=== PATIENT | male | born 1940 | race Caucasian/White ===

== ENCOUNTER 2019-09-24 16:15 | Inpatient (IN) | payer MEDICARE ==
[2019-09-24] VITALS (9 sets, daily range): BP systolic 116–152; BP diastolic 61–85
[~2019-09-24] VITALS: Ht 182.9 cm; Wt 96.5 kg
[~2019-09-24 16:15] MED LIST: HEPARIN SODIUM 1000UNIT/ML 10ML VIAL IV ONE
[2019-09-24] MEDS ORDERED: IPRATROPIUM/ALBUTEROL SULFATE 3 ML SOLUTION IH ONE (16:20)
[2019-09-24 16:38] LABS: BASOPHILS % (AUTO) 0.5 % (0.0-5.0); EOSINOPHILS % (AUTO) 0.7 % (0.0-8.0); HEMATOCRIT 37.2 % (42-54); LYMPHOCYTES % (AUTO) 8.3 % (21.0-51.0); MEAN CORPUSCULAR HEMOGLOBIN 29.4 pg (27.0-33.0); MEAN CORPUSCULAR VOLUME 91.9 fL (79-99); MONOCYTES % (AUTO) 3.7 % (3.0-13.0); NEUTROPHILS % (AUTO) 86.3 % (40.0-77.0); PLATELET COUNT (AUTO) 178 K/uL (130-400); RED BLOOD CELL COUNT(AUTO) 4.05 MIL/uL (4.50-6.20); RED CELL DISTRIBUTION WIDTH 14.9 % (11.0-15.5); WHITE BLOOD COUNT (AUTO) 10.4 K/uL (4.8-10.8)
[2019-09-24] MEDS ORDERED: FUROSEMIDE 10 MG/ML 4ML VIAL ONE (16:39)
[2019-09-24 16:49] LABS: CREATININE 1.1 mg/dL (0.5-1.5); POTASSIUM 4.3 mmol/L (3.5-5.1)
[2019-09-24 16:56] LABS: INR 1.02 (0.85-1.15); PARTIAL THROMBOPLASTIN TIME 38.1 SEC (26.3-35.5); PROTHROMBIN TIME 10.7 SEC (9.6-11.6)
[2019-09-24 17:01] LABS: ALBUMIN 4.4 g/dL (3.5-5.0); BILIRUBIN,TOTAL 0.9 mg/dL (0.2-1.0); TOTAL PROTEIN, SERUM 8.6 g/dL (6.0-8.3); TROPONIN I 0.07 ng/mL (0.00-0.06)
[2019-09-24] MEDS ORDERED: ASPIRIN 325 MG TABLET ONE (17:04)
[2019-09-24] MEDS ORDERED: AZITHROMYCIN 250 MG TABLET PO ONE (17:18)
[2019-09-24] MEDS ORDERED: CEFTRIAXONE SODIUM 1 GM ONE (17:18)
[2019-09-24] MEDS ORDERED: SODIUM CHLORIDE 0.9% 50 ML IV ONE (17:19)
[2019-09-24] MEDS ORDERED: ONDANSETRON HCL 4 MG/2 ML VIAL IVP PRN (19:15)
[2019-09-24] MEDS ORDERED: ACETAMINOPHEN 325 MG TAB PO PRN (19:15)
[2019-09-24] MEDS ORDERED: IOHEXOL 350 MG/ML 100ML INFUS..BTL IV ONE (20:06)
--- NOTE | 2019-09-24 20:20 | NUR ---
ADMISSION 1949 RECEIVED ED REPORT FROM RUBEN ROSAS 2019 PT ADMITTED RM 216 FROM ER ACCOMPANIED BY FAMILY PT CONNECTED TO BEDSIDE MONITOR CONNECTED TO BIPAP IN NO DISTRESS AT THIS TIME ADMISSION DATABASE COMPLETE NO MEDICATIONS AT BEDSIDE ASKED DAUGHTER TO BRING IN AM AND PERSONAL BELONGINGS EYEGLASSES, DENTURES, AND PHONE/MEDICAL NUMERICAL CONTROL OPERATOR AT BESIDE. 2119 HOSPITALIST Prema EASLEY NOTIFIED PT ARRIVAL TO UNIT, V/S, MEDS, LAB/IMAGE RESULTS. NO ORDERS RECEIVED
[2019-09-24 21:12] LABS: APPEARANCE,URINE Clear (CLEAR); BILIRUBIN,URINE Negative (NEGATIVE); COLOR,URINE Yellow (YELLOW); GLUCOSE, URINE (UA) Negative (NEGATIVE); KETONES,URINE Negative (NEGATIVE); LEUKOCYTE ESTERASE ,URINE Negative (NEGATIVE); NITRATE,URINE Negative (NEGATIVE); OCCULT BLOOD,URINE Negative (NEGATIVE); PROTEIN,URINE Negative (NEGATIVE); UROBILINOGEN,URINE 0.2 mg/dL (0.2-1.0)
[2019-09-24] MEDS ORDERED: POTASSIUM CHLORIDE 20 MEQ ERTAB PO PRN (21:15)
[2019-09-24 22:03] LABS: CHOLESTEROL 124 mg/dL (<200); HDL CHOLESTEROL 51 mg/dL (29-71); LDL DIRECT 70 mg/dL (0-99); TRIGLYCERIDES 47 mg/dL (30-200)
[2019-09-24 23:24] LABS: AMPHET/METH SCREEN,URINE NEGATIVE (NEGATIVE); BARBITURATE SCREEN, URINE NEGATIVE (NEGATIVE); BENZODIAZEPINES SCREEN,URINE NEGATIVE (NEGATIVE); CANNABINOID SCREEN,URINE NEGATIVE (NEGATIVE); COCAINE SCREEN,URINE NEGATIVE (NEGATIVE); OPIATE SCREEN,URINE POSITIVE (NEGATIVE); PHENCYCLIDINE SCREEN,URINE NEGATIVE (NEGATIVE)
[2019-09-24] MEDS: FUROSEMIDE 10 MG/ML 4ML VIAL IV SCH (23:30)
[2019-09-24] MEDS: FAMOTIDINE/PF 20 MG/2 ML VIAL IV SCH (23:30)
[2019-09-25] VITALS (25 sets, daily range): BP systolic 110–148; BP diastolic 44–100
--- NOTE | 2019-09-25 00:30 | NUR ---
UPDATE 8550 DR. MACIEL PAGED AWAITING CALL BACK
[2019-09-25] MEDS: ENOXAPARIN SODIUM 100 MG/1 ML SQ SCH ×3 (03:01→21:08)
[2019-09-25 04:36] LABS: BASOPHILS % (AUTO) 0.4 % (0.0-5.0); EOSINOPHILS % (AUTO) 0.5 % (0.0-8.0); HEMATOCRIT 34.4 % (42-54); LYMPHOCYTES % (AUTO) 8.7 % (21.0-51.0); MEAN CORPUSCULAR HEMOGLOBIN 29.7 pg (27.0-33.0); MEAN CORPUSCULAR HGB CONC 32.3 g/dL (32.0-36.0); MONOCYTES % (AUTO) 5.9 % (3.0-13.0); PLATELET COUNT (AUTO) 155 K/uL (130-400); RED BLOOD CELL COUNT(AUTO) 3.74 MIL/uL (4.50-6.20); RED CELL DISTRIBUTION WIDTH 15.2 % (11.0-15.5); WHITE BLOOD COUNT (AUTO) 9.3 K/uL (4.8-10.8)
[2019-09-25] MEDS: FUROSEMIDE 10 MG/ML 4ML VIAL IV SCH ×4 (06:32→23:15)
[2019-09-25] MEDS: METOPROLOL TARTRATE 25 MG TAB PO SCH ×2 (08:07→20:02)
[2019-09-25] MEDS: FAMOTIDINE/PF 20 MG/2 ML VIAL IV SCH ×2 (08:12→21:07)
[2019-09-25] MEDS ORDERED: ENOXAPARIN SODIUM 40 MG/0.4 ML SYRINGE SQ SCH (09:00)
[2019-09-25] MEDS ORDERED: AMLO10TA7 PO (09:17)
[2019-09-25] MEDS ORDERED: LOSA1TAB54 PO (09:17)
[2019-09-25] MEDS ORDERED: ACET1TAB12 PO (09:17)
[2019-09-25] MEDS ORDERED: POTA10CA44 PO (09:17)
[2019-09-25] MEDS ORDERED: ALLO100T PO (09:17)
[2019-09-25] MEDS ORDERED: FURO40TA5 PO (09:17)
[2019-09-25] MEDS ORDERED: PRAV40TA3 PO (09:17)
[2019-09-25] MEDS ORDERED: FINA5TAB41 PO (09:17)
[2019-09-25] MEDS ORDERED: GABA-529 PO (09:17)
[2019-09-25] MEDS ORDERED: MELO-108 PO (09:17)
--- NOTE | 2019-09-25 09:20 | NUR ---
HOME MEDICATIONS ENTERED. DR LANE AWARE. MPOA AND DIRECTIVE TO PHYSICIANS COPIED AND PLACED IN CHART. PATIENT TO REMAIN A FULL CODE AT THIS TIME PER PATIENT AND FAMILY. DR MARTINEZ PAGED FOR TROPONIN AND TO UPDATE ON CONDITION, PENDING CALL BACK.
[2019-09-25] MEDS ORDERED: GLUCAGON 1MG KIT 1 MG ML IM PRN (11:00)
[2019-09-25] MEDS ORDERED: DEXTROSE 50%-WATER 50 ML DISP.SYRIN IV PRN (11:00)
[2019-09-25] MEDS: INSULIN HUMULIN R 100 UNIT/ML 3ML SQ SCH ×3 (11:30→21:00)
[2019-09-25 11:51] LABS: ABG BASE EXCESS 1.5 mmol/L (-2.0-3.0); ABG HCO3 23.6 mmol/L (21.0-28.0); ABG OXYGEN SATURATION 87.4 % (95.0-99.0); ABG PCO2 31 mmHg (35-48)
[2019-09-25] MEDS: ASPIRIN 81MG TAB.CHEW PO SCH (12:07)
[2019-09-25] MEDS: ALLOPURINOL 100 MG TABLET PO SCH (12:07)
[2019-09-25] MEDS: POTASSIUM CHLORIDE 10 MEQ/TAB.SA PO SCH (12:08)
[2019-09-25] MEDS: GABAPENTIN 100 MG CAPSULE PO SCH ×2 (14:07→21:06)
[2019-09-25] MEDS ORDERED: FAMOTIDINE/PF 20 MG/2 ML VIAL IV ONE (20:36)
[2019-09-25] MEDS ORDERED: GABAPENTIN 100 MG CAPSULE ONE (20:36)
[2019-09-25] MEDS: SIMVASTATIN 20 MG TABLET PO SCH (21:00)
[2019-09-25] MEDS: ACETAMINOPHEN-CODEINE 300/30MG TAB PO SCH (21:06)
[2019-09-25] MEDS: FINASTERIDE 5 MG TABLET PO SCH (21:06)
[2019-09-25] MEDS: ATORVASTATIN CALCIUM 20 MG TABLET PO SCH (21:06)
[2019-09-26] VITALS (27 sets, daily range): BP systolic 104–136; BP diastolic 40–113
[2019-09-26 03:57] LABS: HEMATOCRIT 33.1 % (42-54); MEAN CORPUSCULAR HEMOGLOBIN 29.9 pg (27.0-33.0); MEAN CORPUSCULAR HGB CONC 32.3 g/dL (32.0-36.0); MEAN CORPUSCULAR VOLUME 92.5 fL (79-99); PLATELET COUNT (AUTO) 166 K/uL (130-400); RED BLOOD CELL COUNT(AUTO) 3.58 MIL/uL (4.50-6.20); RED CELL DISTRIBUTION WIDTH 15.2 % (11.0-15.5); WHITE BLOOD COUNT (AUTO) 9.1 K/uL (4.8-10.8)
[2019-09-26 04:02] LABS: INR 1.13 (0.85-1.15); PARTIAL THROMBOPLASTIN TIME 70.2 SEC (26.3-35.5); PROTHROMBIN TIME 11.8 SEC (9.6-11.6)
[2019-09-26 04:06] LABS: HEMOGLOBIN A1C 5.9 % (4.0-6.0)
[2019-09-26 04:12] LABS: B-TYPE NATRIURETIC PEPTIDE 1540 pg/mL (0-100)
[2019-09-26 04:35] LABS: CREATININE 1.1 mg/dL (0.5-1.5); POTASSIUM 3.5 mmol/L (3.5-5.1)
[2019-09-26 04:38] LABS: TROPONIN I 5.75 ng/mL (0.00-0.06)
[2019-09-26] MEDS: FUROSEMIDE 10 MG/ML 4ML VIAL IV SCH ×4 (05:36→23:42)
[2019-09-26] MEDS: LIDOCAINE HCL-MPF 1% 2ML VIAL IJ PRN ×2 (05:41→13:19)
[2019-09-26] MEDS: POTASSIUM CHLORIDE 20MEQ/100ML 100 ML IV PRN ×2 (05:42→13:19)
[2019-09-26] MEDS: INSULIN HUMULIN R 100 UNIT/ML 3ML SQ SCH ×4 (06:42→20:22)
--- NOTE | 2019-09-26 07:00 | NUR ---
PATIENT RECEIVED IN BED, AAOX3, NO ACUTE DISTRESS NOTED. PATIENT CONTINUES WITH HEART RATE 30s TO 40s AFIB/AFLUTTER. PATIENT ON BIPAP WITH SATURATIONS AT 100%. PATIENT REMAINS IS ASYMPTOMATIC, NO C/O PAIN OR SOB VOICED. WILL CONT TO MONITOR CLOSELY.
[2019-09-26] MEDS: FAMOTIDINE/PF 20 MG/2 ML VIAL IV SCH ×2 (09:00→20:13)
[2019-09-26] MEDS: ENOXAPARIN SODIUM 100 MG/1 ML SQ SCH ×2 (09:00→20:15)
[2019-09-26] MEDS: ASPIRIN 81MG TAB.CHEW PO SCH (09:00)
[2019-09-26] MEDS: POTASSIUM CHLORIDE 10 MEQ/TAB.SA PO SCH (09:00)
[2019-09-26] MEDS: GABAPENTIN 100 MG CAPSULE PO SCH ×3 (09:00→20:11)
--- NOTE | 2019-09-26 10:00 | NUR ---
CHANNELING MACHINE OPERATOR ROUNDS LAILA CERDA CHANNELING MACHINE OPERATOR IN TO EVALUATE PATIENT.
[2019-09-26] MEDS: ALLOPURINOL 100 MG TABLET PO SCH (12:00)
--- NOTE | 2019-09-26 12:30 | NUR ---
MD ROUNDS DR. NAVA IN TO EVALUATE PATIENT. I UPDATED HIM ON STATUS.NEW ORDERS RECEIVED, TO BE CARRIED OUT. PATIENT CONTINUES NPO FOR POSSIBLE HEART CATH.
[2019-09-26] MEDS ORDERED: ATROPINE SULFATE 0.1 MG/ML 10 ML SYG IVP PRN ×2 (13:00→13:30)
[2019-09-26] MEDS ORDERED: DOPAMINE HCL 400 MG/D5%-WATER 250 ML IV SCH (13:15)
--- NOTE | 2019-09-26 14:00 | NUR ---
DOPAMINE INITIATED AT 2MCG/KG/MIN.
--- NOTE | 2019-09-26 16:10 | NUR ---
PAGED DR. MACIEL VIA ANSWERING SERVICE TO CLARIFY PLANS FOR HEART CATH. WILL AWAIT CALL BACK.
--- NOTE | 2019-09-26 16:13 | NUR ---
DR. MACIEL CALLED BACK, INSTRUCTED TO FEED PATIENT TODAY AND TO KEEP NPO AFTER MN FOR CATH TOMORROW, NOTIFY AIX SYSTEM ADMINISTRATOR. UPDATED ON STATUS AND NEW ORDERS FROM DR. NAVA REGARDING HEART RATE AND DOPAMINE.
--- NOTE | 2019-09-26 17:55 | NUR ---
D/C PLAN CM spoke to pt regarding d/c planning. Pt is ind. with ADL's. Son lives with pt. 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 States son is being cared for by his family while in hospital. States daughters come and assist pt as needed. Denies having any home health or provider services. CM offered short term snf/rehab as possible d/c option. Plan to home. CM to f/u. Addendum: 09/26/19 at 1759 by ANGEL PERKINS CM Amended: Links added.
[2019-09-26] MEDS ORDERED: GABAPENTIN 100 MG CAPSULE ONE (19:46)
[2019-09-26] MEDS ORDERED: FAMOTIDINE/PF 20 MG/2 ML VIAL IV ONE (19:47)
[2019-09-26] MEDS: FINASTERIDE 5 MG TABLET PO SCH (20:11)
[2019-09-26] MEDS: ATORVASTATIN CALCIUM 20 MG TABLET PO SCH (20:11)
[2019-09-26] MEDS: ACETAMINOPHEN-CODEINE 300/30MG TAB PO SCH (20:12)
[2019-09-26] MEDS: SIMVASTATIN 20 MG TABLET PO SCH (20:13)
[2019-09-26] MEDS: POTASSIUM CHLORIDE 10% ELIXIR 20 MEQ/15 ML UDCUP PO PRN ×2 (20:24→22:00)
[2019-09-27] VITALS (49 sets, daily range): BP systolic 90–167; BP diastolic 45–89
[2019-09-27 03:59] LABS: CREATININE 1.2 mg/dL (0.5-1.5); MAGNESIUM 2.2 mg/dL (1.80-2.40); PHOSPHORUS 4.2 mg/dL (2.5-4.9); POTASSIUM 3.6 mmol/L (3.5-5.1)
[2019-09-27 04:04] LABS: BASOPHILS % (AUTO) 0.8 % (0.0-5.0); EOSINOPHILS % (AUTO) 2.3 % (0.0-8.0); HEMATOCRIT 33.9 % (42-54); LYMPHOCYTES % (AUTO) 17.6 % (21.0-51.0); MEAN CORPUSCULAR HEMOGLOBIN 29.4 pg (27.0-33.0); MEAN CORPUSCULAR HGB CONC 32.7 g/dL (32.0-36.0); MEAN CORPUSCULAR VOLUME 89.9 fL (79-99); MONOCYTES % (AUTO) 8.8 % (3.0-13.0); NEUTROPHILS % (AUTO) 70.2 % (40.0-77.0); PLATELET COUNT (AUTO) 179 K/uL (130-400); RED BLOOD CELL COUNT(AUTO) 3.77 MIL/uL (4.50-6.20); RED CELL DISTRIBUTION WIDTH 14.6 % (11.0-15.5); WHITE BLOOD COUNT (AUTO) 7.5 K/uL (4.8-10.8)
[2019-09-27 04:09] LABS: INR 1.07 (0.85-1.15); PARTIAL THROMBOPLASTIN TIME 55.6 SEC (26.3-35.5); PROTHROMBIN TIME 11.2 SEC (9.6-11.6)
[2019-09-27] MEDS: POTASSIUM CHLORIDE 20MEQ/100ML 100 ML IV PRN ×4 (04:37→22:24)
[2019-09-27] MEDS: LIDOCAINE HCL-MPF 1% 2ML VIAL IJ PRN (04:37)
[2019-09-27] MEDS: FUROSEMIDE 10 MG/ML 4ML VIAL IV SCH ×2 (05:08→11:56)
[2019-09-27] MEDS: INSULIN HUMULIN R 100 UNIT/ML 3ML SQ SCH ×3 (06:35→16:30)
[2019-09-27] MEDS: GABAPENTIN 100 MG CAPSULE PO SCH ×2 (08:09→12:54)
[2019-09-27] MEDS: POTASSIUM CHLORIDE 10 MEQ/TAB.SA PO SCH (08:10)
[2019-09-27] MEDS: ENOXAPARIN SODIUM 100 MG/1 ML SQ SCH (08:11)
--- NOTE | 2019-09-27 08:12 | NUR ---
HELD DOSE OF LOVENOX, SCHEDULED FOR LEFT HEART CATH THIS AM
[2019-09-27] MEDS ORDERED: FAMOTIDINE/PF 20 MG/2 ML VIAL IV SCH (08:21)
[2019-09-27] MEDS: FAMOTIDINE/PF 20 MG/2 ML VIAL IV SCH ×2 (08:49→21:25)
[2019-09-27] MEDS: ASPIRIN 81MG TAB.CHEW PO SCH (09:00)
[2019-09-27] MEDS ORDERED: HEPARIN SODIUM 1000UNIT/ML 10ML VIAL ONE ×3 (09:21→15:16)
[2019-09-27] MEDS ORDERED: NITROGLYCERIN 2 MG/VIAL VIAL IV ONE (09:21)
[2019-09-27] MEDS ORDERED: IOHEXOL-350 50ML VIAL IV ONE (09:21)
[2019-09-27] MEDS ORDERED: BIVALIRUDIN 250 MG/VIAL IV ONE (09:21)
[2019-09-27] MEDS ORDERED: IOHEXOL 350 MG/ML 100ML INFUS..BTL IV ONE (09:22)
[2019-09-27] MEDS ORDERED: LIDOCAINE HCL 2% 20ML ONE (09:22)
[2019-09-27] MEDS ORDERED: FENTANYL CITRATE PF 50 MCG/1 ML 2ML VIAL ONE (09:22)
[2019-09-27] MEDS ORDERED: MIDAZOLAM HCL 1 MG/ML 2ML VIAL ONE ×3 (09:22→15:17)
--- NOTE | 2019-09-27 09:22 | NUR ---
TRANSFERRED TO THE SPACE AND MISSILE OPERATIONS VIA BED, FOR SCHEDULED LHC, AAOX3, UNLABORED RESPIRATIONS NOTED
[2019-09-27] MEDS ORDERED: PHARMACY COMMUNICATION MISC SCH (10:45)
--- NOTE | 2019-09-27 10:45 | NUR ---
BACK IN ROOM. S/P LEFT HEART CATH. DRESSING TO RT GROIN DRY AND INTACT, ANTHONY. PEDAL PULSES WEAK, BUT PALPABLE, AOOX3, UNLABORED RESPIRATIONS NOTED
[2019-09-27] MEDS: ALLOPURINOL 100 MG TABLET PO SCH (11:57)
--- NOTE | 2019-09-27 12:20 | NUR ---
DR SAM AT BEDSIDE, TO EXPLAIN SCHEDULED SURGERY, CABG, TO PATIENT AND PATIENT'S DAUGHTER'S X3 AT BEDSIDE
[2019-09-27] MEDS ORDERED: CEFAZOLIN SODIUM 1 GM VIAL IVP PRN (12:45)
[2019-09-27 13:06] LABS: HEMATOCRIT 38.6 % (42-54); MEAN CORPUSCULAR HEMOGLOBIN 29.6 pg (27.0-33.0); MEAN CORPUSCULAR HGB CONC 32.6 g/dL (32.0-36.0); MEAN CORPUSCULAR VOLUME 90.6 fL (79-99); PLATELET COUNT (AUTO) 177 K/uL (130-400); RED BLOOD CELL COUNT(AUTO) 4.26 MIL/uL (4.50-6.20); RED CELL DISTRIBUTION WIDTH 14.5 % (11.0-15.5)
[2019-09-27 13:19] LABS: CREATININE 1.1 mg/dL (0.5-1.5); POTASSIUM 3.6 mmol/L (3.5-5.1)
[2019-09-27 13:22] LABS: INR 1.02 (0.85-1.15); PARTIAL THROMBOPLASTIN TIME 45.2 SEC (26.3-35.5); PROTHROMBIN TIME 10.7 SEC (9.6-11.6)
[2019-09-27 13:28] LABS: HEMOGLOBIN A1C 5.9 % (4.0-6.0)
[2019-09-27 13:51] LABS: B-TYPE NATRIURETIC PEPTIDE 938 pg/mL (0-100)
[2019-09-27] MEDS ORDERED: EPINEPHRINE 10 MG in SODIUM CHLORIDE 0.9% 240 ML IV PRN (14:15)
[2019-09-27] MEDS ORDERED: NOREPINEPHRINE BITARTRATE 8 MG in DEXTROSE 5%-WATER 250 ML IV PRN (14:15)
[2019-09-27] MEDS ORDERED: AMINOCAPROIC ACID 15,000 MG in SODIUM CHLORIDE 0.9% 500ML 420 ML IV PRN (14:15)
--- NOTE | 2019-09-27 14:20 | NUR ---
GABY VELASQUEZ, NURSE FOR DR SAM NOTIFIED ABOUT CAROTID US: GREATER THAN 70 % STENOSIS WITHIN RT ICA, MINIMAL CALCIFIED PLAQUE ALONG THE LEFT CAROTID BIFURCATION.
[2019-09-27] MEDS ORDERED: NEOMY SULF/POLYMYXIN B SULFATE 1 ML AMPUL IR ONE (14:32)
[2019-09-27] MEDS ORDERED: OCTYL 2-CYANOACRYLATE 1 EACH TP ONE (14:32)
[2019-09-27] MEDS ORDERED: PAPAVERINE HCL 30 MG/ML 2ML VIAL ONE (14:32)
[2019-09-27] MEDS ORDERED: NITROGLYCERIN 50 MG/D5% WATER 1 BOT ONE (14:55)
--- NOTE | 2019-09-27 15:05 | NUR ---
TRANSFERRED TO THE OR, VIA BED, ACCOMPANIED PER OR NURSE.
[2019-09-27] MEDS ORDERED: FENTANYL CITRATE PF 50 MCG/1 ML 20ML VIAL IJ ONE (15:16)
[2019-09-27] MEDS ORDERED: ESMOLOL HCL 10 MG/ML 10 ML VIAL ONE (15:16)
[2019-09-27] MEDS ORDERED: LIDOCAINE PF 2% 5ML ABBOJECT ONE (15:16)
[2019-09-27] MEDS ORDERED: PROTAMINE SULFATE 10 MG/ML 25ML VIAL IV ONE (15:16)
[2019-09-27] MEDS ORDERED: AMINOCAPROIC ACID 250 MG/ML 20 ML VIAL IV ONE (15:16)
[2019-09-27] MEDS ORDERED: SODIUM BICARB 50MEQ 50ML VIAL ONE (15:16)
[2019-09-27] MEDS ORDERED: NOREPINEPHRINE BITARTRATE 1 MG/1 ML ML IV ONE (15:16)
[2019-09-27] MEDS ORDERED: EPINEPHRINE 1 MG/ML AMPULE ONE (15:16)
[2019-09-27] MEDS ORDERED: PROPOFOL 10 MG/ML 20ML VIAL IV ONE (15:16)
[2019-09-27] MEDS ORDERED: ROCURONIUM 10MG/1ML SYR 10 MG/ML ML ONE (15:17)
[2019-09-27] MEDS ORDERED: KETAMINE 50MG/ML SYRINGE 50 MG/ML DISP.SYRIN IV ONE (15:17)
[2019-09-27] MEDS ORDERED: CEFAZOLIN SODIUM 1 GM VIAL ONE ×2 (15:21→22:30)
[2019-09-27 16:45] LABS: ABG BASE EXCESS -2.1 mmol/L (-2.0-3.0); ABG HCO3 22.6 mmol/L (21.0-28.0); ABG OXYGEN SATURATION 99.3 % (95.0-99.0); ABG PCO2 39 mmHg (35-48)
--- NOTE | 2019-09-27 17:25 | NUR ---
REPORT GIVEN TO ALISON WELLS, REPORT PENDING TO BE GIVEN FROM OR
[2019-09-27] MEDS ORDERED: SODIUM CHLORIDE 0.9% 500ML 500 ML IV SCH (18:01)
[2019-09-27 18:04] LABS: ABG BASE EXCESS -6.9 mmol/L (-2.0-3.0); ABG HCO3 18.5 mmol/L (21.0-28.0); ABG OXYGEN SATURATION 98.7 % (95.0-99.0); ABG PCO2 37 mmHg (35-48)
[2019-09-27] MEDS ORDERED: PROPOFOL 1000 MG/100 ML 100 ML IV PRN (18:15)
[2019-09-27] MEDS ORDERED: ACETAMINOPHEN 650 MG SUPPOSITORY RC PRN (18:15)
[2019-09-27] MEDS ORDERED: INSULIN REGULAR, HUMAN 3ML 100 UNIT in SODIUM CHLORIDE 0.9% 99 ML IV SCH ×2 (18:15)
[2019-09-27] MEDS ORDERED: MORPHINE SULFATE 2 MG/ML 1ML SYG IV PRN (18:15)
[2019-09-27] MEDS ORDERED: EPINEPHRINE 10 MG in DEXTROSE 5%-WATER 250 ML IV PRN (18:15)
[2019-09-27] MEDS ORDERED: GLUCAGON 1MG KIT 1 MG ML IM PRN (18:15)
[2019-09-27] MEDS ORDERED: CALCIUM GLUCONATE 1 GM/10 ML VIAL IV ONE (18:15)
[2019-09-27] MEDS ORDERED: SODIUM CHLORIDE 0.9% 10 ML VIAL IVP PRN (18:15)
[2019-09-27] MEDS ORDERED: SODIUM CHLORIDE 0.9% 1000ML 1,000 ML IV SCH (18:15)
[2019-09-27] MEDS ORDERED: SODIUM CHLORIDE 0.9% 250 ML IV PRN (18:15)
[2019-09-27] MEDS ORDERED: ALBUMIN (HUMAN) 5% 250 ML IV PRN (18:15)
[2019-09-27] MEDS ORDERED: MAGNESIUM 2GM PREMIX 50ML 50 ML IV PRN (18:15)
[2019-09-27] MEDS ORDERED: DEXTROSE 50%-WATER 50 ML DISP.SYRIN IV PRN (18:15)
[2019-09-27] MEDS ORDERED: NITROGLYCERIN 50 MG/D5% WATER 250 BOT IV SCH (18:15)
[2019-09-27] MEDS ORDERED: TRAMADOL HCL 50 MG TABLET PO PRN ×2 (18:15)
[2019-09-27] MEDS ORDERED: AMINOCAPROIC ACID 15,000 MG in SODIUM CHLORIDE 0.9% 250 ML IV SCH (18:15)
[2019-09-27] MEDS ORDERED: ACETAMINOPHEN 325 MG TAB PO PRN ×2 (18:15)
[2019-09-27] MEDS ORDERED: CALCIUM GLUCONATE 1 GM in SODIUM CHLORIDE 0.9% 50 ML IV PRN (18:15)
[2019-09-27] MEDS ORDERED: POTASSIUM PHOS 15 mMOL+NS250ML 250 ML IV PRN (18:15)
[2019-09-27] MEDS ORDERED: NOREPINEPHRINE 4MG/NS 250ML 250 ML IV PRN (18:15)
[2019-09-27] MEDS ORDERED: ONDANSETRON HCL 4 MG/2 ML VIAL IV PRN (18:15)
[2019-09-27] MEDS ORDERED: MORPHINE SULFATE 4 MG/1ML SYG IV PRN (18:15)
[2019-09-27] MEDS ORDERED: EPHEDRINE SULFATE 50 MG/ML AMPULE ONE (18:24)
[2019-09-27 19:00] LABS: HEMATOCRIT 34.6 % (42-54); MEAN CORPUSCULAR HEMOGLOBIN 30.1 pg (27.0-33.0); MEAN CORPUSCULAR HGB CONC 33.5 g/dL (32.0-36.0); MEAN CORPUSCULAR VOLUME 89.6 fL (79-99); PLATELET COUNT (AUTO) 194 K/uL (130-400); RED BLOOD CELL COUNT(AUTO) 3.86 MIL/uL (4.50-6.20); RED CELL DISTRIBUTION WIDTH 14.3 % (11.0-15.5)
[2019-09-27 19:04] LABS: WHITE BLOOD COUNT (AUTO) 28.2 K/uL (4.8-10.8)
[2019-09-27 19:14] LABS: CREATININE 1.3 mg/dL (0.5-1.5); MAGNESIUM 1.9 mg/dL (1.80-2.40); PHOSPHORUS 6.4 mg/dL (2.5-4.9); POTASSIUM 3.2 mmol/L (3.5-5.1)
[2019-09-27 19:15] LABS: INR 1.15 (0.85-1.15)
--- NOTE | 2019-09-27 19:16 | NUR ---
Patient arrived from OR at 1832 intubated and sedated with OGT, RIJ, Left A line, chest tube and mays in place. VSS bushra, medication via IV running to RIJ as charted.
[2019-09-27 19:28] LABS: ABG BASE EXCESS -2.9 mmol/L (-2.0-3.0); ABG HCO3 22.1 mmol/L (21.0-28.0); ABG OXYGEN SATURATION 95.3 % (95.0-99.0); ABG PCO2 40 mmHg (35-48)
[2019-09-27] MEDS: SODIUM BICARB 50MEQ 50ML VIAL IV PRN ×2 (19:47→20:30)
[2019-09-27] MEDS ORDERED: ATORVASTATIN CALCIUM 40 MG TABLET PO SCH (20:00)
[2019-09-27 20:21] LABS: ABG BASE EXCESS -2.3 mmol/L (-2.0-3.0); ABG HCO3 23.1 mmol/L (21.0-28.0); ABG OXYGEN SATURATION 98.2 % (95.0-99.0); ABG PCO2 42 mmHg (35-48)
[2019-09-27] MEDS ORDERED: METOPROLOL TARTRATE 25 MG TAB PO SCH ×2 (21:00)
[2019-09-27] MEDS ORDERED: ENALAPRIL MALEATE 5 MG TAB PO SCH (21:00)
[2019-09-27] MEDS: ATORVASTATIN CALCIUM 20 MG TABLET PO SCH (21:24)
[2019-09-27] MEDS: FINASTERIDE 5 MG TABLET PO SCH (21:24)
[2019-09-27 22:01] LABS: ABG BASE EXCESS 2.1 mmol/L (-2.0-3.0); ABG OXYGEN SATURATION 98.4 % (95.0-99.0); ABG PCO2 43 mmHg (35-48)
[2019-09-27] MEDS: CEFAZOLIN SODIUM 1 GM VIAL IV SCH (22:30)
[2019-09-27 23:24] LABS: ABG BASE EXCESS 1.8 mmol/L (-2.0-3.0); ABG HCO3 26.4 mmol/L (21.0-28.0); ABG OXYGEN SATURATION 96.1 % (95.0-99.0); ABG PCO2 41 mmHg (35-48)
[2019-09-27 23:59] LABS: ABG BASE EXCESS -1.9 mmol/L (-2.0-3.0); ABG HCO3 22.9 mmol/L (21.0-28.0); ABG OXYGEN SATURATION 94.8 % (95.0-99.0); ABG PCO2 39 mmHg (35-48)
[2019-09-28] VITALS (63 sets, daily range): BP systolic 94–138; BP diastolic 47–89
--- NOTE | 2019-09-28 | NUR ---
Patient anxious and not following commands during the respiratory weaning trial. NIF 26, VC 1200, ABG within extubation limits, Decreasing EPI and Levo, see charting.
--- NOTE | 2019-09-28 00:58 | NUR ---
Patient extubated at 0000 to 60% aerosol mask and tolerated well.
[2019-09-28 01:12] LABS: ABG BASE EXCESS 2.7 mmol/L (-2.0-3.0); ABG HCO3 27.5 mmol/L (21.0-28.0); ABG OXYGEN SATURATION 97.4 % (95.0-99.0); ABG PCO2 43 mmHg (35-48)
[2019-09-28] MEDS: POTASSIUM CHLORIDE 20MEQ/100ML 100 ML IV PRN (01:40)
[2019-09-28 04:26] LABS: BASOPHILS % (AUTO) 0.2 % (0.0-5.0); HEMATOCRIT 31.8 % (42-54); LYMPHOCYTES % (AUTO) 4.1 % (21.0-51.0); MEAN CORPUSCULAR HEMOGLOBIN 29.8 pg (27.0-33.0); MEAN CORPUSCULAR VOLUME 90.3 fL (79-99); MONOCYTES % (AUTO) 8.8 % (3.0-13.0); NEUTROPHILS % (AUTO) 86.3 % (40.0-77.0); PLATELET COUNT (AUTO) 210 K/uL (130-400); RED BLOOD CELL COUNT(AUTO) 3.52 MIL/uL (4.50-6.20); RED CELL DISTRIBUTION WIDTH 14.6 % (11.0-15.5); WHITE BLOOD COUNT (AUTO) 14.5 K/uL (4.8-10.8)
[2019-09-28 04:33] LABS: ABG BASE EXCESS 4.2 mmol/L (-2.0-3.0); ABG HCO3 29.1 mmol/L (21.0-28.0); ABG OXYGEN SATURATION 95.9 % (95.0-99.0); ABG PCO2 44 mmHg (35-48)
[2019-09-28 04:39] LABS: CREATININE 1.5 mg/dL (0.5-1.5); MAGNESIUM 2.2 mg/dL (1.80-2.40); PHOSPHORUS 3.8 mg/dL (2.5-4.9); POTASSIUM 4.3 mmol/L (3.5-5.1)
[2019-09-28] MEDS ORDERED: CALCIUM GLUCONATE 1 GM/10 ML VIAL IV ONE (04:39)
[2019-09-28 04:42] LABS: B-TYPE NATRIURETIC PEPTIDE 1300 pg/mL (0-100)
[2019-09-28 04:48] LABS: INR 1.09 (0.85-1.15); PARTIAL THROMBOPLASTIN TIME 32.9 SEC (26.3-35.5); PROTHROMBIN TIME 11.4 SEC (9.6-11.6)
[2019-09-28] MEDS: CEFAZOLIN SODIUM 1 GM VIAL IV SCH ×2 (07:05→15:15)
[2019-09-28] MEDS: FAMOTIDINE/PF 20 MG/2 ML VIAL IV SCH ×2 (10:57→21:59)
[2019-09-28] MEDS: ALLOPURINOL 100 MG TABLET PO SCH (11:02)
[2019-09-28] MEDS ORDERED: CEFAZOLIN SODIUM 1 GM VIAL IVP ONE (18:45)
[2019-09-28] MEDS ORDERED: ALBUMIN (HUMAN) 5% 250 ML IV STA (19:13)
[2019-09-28] MEDS ORDERED: EPINEPHRINE 10 MG in SODIUM CHLORIDE 0.9% 240 ML IV PRN (20:00)
[2019-09-28] MEDS: FINASTERIDE 5 MG TABLET PO SCH (21:59)
[2019-09-28] MEDS: ATORVASTATIN CALCIUM 20 MG TABLET PO SCH (21:59)
[2019-09-29] VITALS (77 sets, daily range): BP systolic 105–159; BP diastolic 40–74
[2019-09-29 03:38] LABS: HEMATOCRIT 29.5 % (42-54); MEAN CORPUSCULAR HEMOGLOBIN 29.5 pg (27.0-33.0); MEAN CORPUSCULAR HGB CONC 32.2 g/dL (32.0-36.0); MEAN CORPUSCULAR VOLUME 91.6 fL (79-99); PLATELET COUNT (AUTO) 170 K/uL (130-400); RED BLOOD CELL COUNT(AUTO) 3.22 MIL/uL (4.50-6.20); RED CELL DISTRIBUTION WIDTH 15.2 % (11.0-15.5)
[2019-09-29 03:51] LABS: CREATININE 1.2 mg/dL (0.5-1.5); POTASSIUM 4.1 mmol/L (3.5-5.1)
[2019-09-29] MEDS: FAMOTIDINE/PF 20 MG/2 ML VIAL IV SCH (09:59)
[2019-09-29] MEDS: ALLOPURINOL 100 MG TABLET PO SCH (11:18)
[2019-09-29] MEDS ORDERED: PHARMACY COMMUNICATION MISC SCH (21:15)
[2019-09-29] MEDS ORDERED: FAMOTIDINE 20MG TAB 20 MG TAB ONE (21:19)
[2019-09-29] MEDS: ATORVASTATIN CALCIUM 20 MG TABLET PO SCH (21:22)
[2019-09-29] MEDS: FINASTERIDE 5 MG TABLET PO SCH (21:22)
[2019-09-30] VITALS (27 sets, daily range): BP systolic 90–160; BP diastolic 42–82
[2019-09-30 04:54] LABS: HEMATOCRIT 25.7 % (42-54); MEAN CORPUSCULAR HEMOGLOBIN 29.8 pg (27.0-33.0); MEAN CORPUSCULAR HGB CONC 33.1 g/dL (32.0-36.0); MEAN CORPUSCULAR VOLUME 90.2 fL (79-99); PLATELET COUNT (AUTO) 150 K/uL (130-400); RED BLOOD CELL COUNT(AUTO) 2.85 MIL/uL (4.50-6.20); RED CELL DISTRIBUTION WIDTH 14.6 % (11.0-15.5); WHITE BLOOD COUNT (AUTO) 10.4 K/uL (4.8-10.8)
[2019-09-30 05:31] LABS: POTASSIUM 3.4 mmol/L (3.5-5.1)
[2019-09-30] MEDS: POTASSIUM CHLORIDE 20MEQ/100ML 100 ML IV PRN (06:41)
[2019-09-30] MEDS: ALLOPURINOL 100 MG TABLET PO SCH (14:35)
--- NOTE | 2019-09-30 15:32 | NUR ---
Nutrition Intervention: Nutrition screen based on LOS x 6 days. 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 Pt. on Heart Healthy diet with good p.o. intake, as per pt. Labs reviewed(Alb 4.4). SR-19, chest incision. Pt. with 1+ edema to Lower ext. LBM: 09/29/2019. Pt. educated CABG Nut. Therapy diet and provided with education material. Pt. verbalized understanding. Recommendations: 1) Continue current diet. 2) CABG Nut. Therapy diet education given to patient. 3) Continue to monitor pt's nutritional status. 4) Consult RD as nutrition concerns arise. Addendum: 09/30/19 at [address] Amended: Links added.
[2019-09-30] MEDS ORDERED: GLUCAGON 1MG KIT 1 MG ML IM PRN (19:30)
[2019-09-30] MEDS ORDERED: DEXTROSE 50%-WATER 50 ML DISP.SYRIN IV PRN (19:30)
[2019-09-30] MEDS: INSULIN HUMULIN R 100 UNIT/ML 3ML SQ SCH (21:00)
[2019-09-30] MEDS: ENALAPRIL MALEATE 5 MG TAB PO SCH (21:41)
[2019-09-30] MEDS: FINASTERIDE 5 MG TABLET PO SCH (21:41)
[2019-09-30] MEDS: ATORVASTATIN CALCIUM 20 MG TABLET PO SCH (21:41)
[2019-09-30] MEDS: METOPROLOL TARTRATE 25 MG TAB PO SCH (21:41)
[2019-09-30] MEDS: FAMOTIDINE 20MG TAB 20 MG TAB PO SCH (21:42)
[2019-10-01] VITALS (7 sets, daily range): BP systolic 108–130; BP diastolic 49–69
[2019-10-01 05:27] LABS: HEMATOCRIT 26.4 % (42-54); MEAN CORPUSCULAR HEMOGLOBIN 29.3 pg (27.0-33.0); MEAN CORPUSCULAR HGB CONC 32.6 g/dL (32.0-36.0); MEAN CORPUSCULAR VOLUME 89.8 fL (79-99); PLATELET COUNT (AUTO) 157 K/uL (130-400); RED BLOOD CELL COUNT(AUTO) 2.94 MIL/uL (4.50-6.20); RED CELL DISTRIBUTION WIDTH 14.5 % (11.0-15.5); WHITE BLOOD COUNT (AUTO) 10.9 K/uL (4.8-10.8)
[2019-10-01 05:55] LABS: CREATININE 0.8 mg/dL (0.5-1.5); POTASSIUM 3.3 mmol/L (3.5-5.1)
[2019-10-01] MEDS: INSULIN HUMULIN R 100 UNIT/ML 3ML SQ SCH ×4 (06:45→21:00)
[2019-10-01] MEDS: ASPIRIN 81 MG EC TAB PO SCH (08:27)
[2019-10-01] MEDS: METOPROLOL TARTRATE 25 MG TAB PO SCH ×2 (08:27→21:00)
[2019-10-01] MEDS: ENALAPRIL MALEATE 5 MG TAB PO SCH ×2 (08:28→21:00)
[2019-10-01] MEDS: FAMOTIDINE 20MG TAB 20 MG TAB PO SCH ×2 (08:28→21:00)
[2019-10-01] MEDS: POTASSIUM CHLORIDE 10% ELIXIR 20 MEQ/15 ML UDCUP PO PRN ×3 (08:29→11:42)
[2019-10-01] MEDS: ALLOPURINOL 100 MG TABLET PO SCH (11:40)
--- NOTE | 2019-10-01 16:20 | NUR ---
DC PLAN VISITED WITH PATIENT. GAVE INFO REGARDING SNF. ORIGINALLY GOING HOME. BUT PATIENT [place] DAUGHTER AND SHE NEEDS HIM TO BE 100 % FOR MOVE. NOW WANTS SNF. ORIGINALLY WANTED [facility] NO BEDS AVAILABLE. GAVE SNF LIST WELL [facility] INFO SHEETS. FOLLOWED UP TWICE SAID NOT READY. DR. SEYMOUR MENTIONED [facility] [place] SAID NO BED AVAILABLE. MAYBE THIS WEEKEND. Addendum: 10/01/19 at 1625 by GILBERTO WILLETT RN Amended: Links added.
[2019-10-01] MEDS: ATORVASTATIN CALCIUM 20 MG TABLET PO SCH (21:00)
[2019-10-01] MEDS: FINASTERIDE 5 MG TABLET PO SCH (21:00)
[2019-10-02 03:00] VITALS: BP 124/74
[2019-10-02 05:05] LABS: CREATININE 0.8 mg/dL (0.5-1.5); POTASSIUM 3.4 mmol/L (3.5-5.1)
[2019-10-02] MEDS: INSULIN HUMULIN R 100 UNIT/ML 3ML SQ SCH ×4 (06:41→21:00)
[2019-10-02 07:52] VITALS: BP 121/58
[2019-10-02] MEDS: ENALAPRIL MALEATE 5 MG TAB PO SCH ×2 (09:13→21:48)
[2019-10-02] MEDS: POTASSIUM CHLORIDE 20 MEQ ERTAB PO PRN ×2 (09:13→12:14)
[2019-10-02] MEDS: METOPROLOL TARTRATE 25 MG TAB PO SCH ×2 (09:13→21:47)
[2019-10-02] MEDS: ASPIRIN 81 MG EC TAB PO SCH (09:13)
[2019-10-02] MEDS: FAMOTIDINE 20MG TAB 20 MG TAB PO SCH ×2 (09:14→21:47)
[2019-10-02] MEDS: ENOXAPARIN SODIUM 30 MG/0.3 ML SQ SCH (09:15)
--- NOTE | 2019-10-02 11:30 | NUR ---
CM NOTE CM spoke to Olivia with [facility]. States no bed availability for [facility] over the weekend. States HNR has beds available. CM then spoke to Shavon with [facility]. States they have bed available for tomorrow. CM to f/u with pt.
[2019-10-02] MEDS: ALLOPURINOL 100 MG TABLET PO SCH (12:15)
[2019-10-02 12:25] VITALS: BP 116/77
--- NOTE | 2019-10-02 12:47 | NUR ---
NISHA F/U nisha spoke to pt and daughter named Gracie regarding d/c planning. Daughter still touring facilities. States she will be visiting [facility] and [facility] today. States she will call CM back with final decision.
[2019-10-02 15:46] VITALS: BP 108/78
[2019-10-02] MEDS ORDERED: POTASSIUM CHLORIDE 20 MEQ ERTAB PO SCH (16:45)
[2019-10-02] MEDS ORDERED: FUROSEMIDE 20 MG TABLET PO SCH (16:45)
--- NOTE | 2019-10-02 16:56 | NUR ---
[facility] CM spoke to patient's daughter Gracie. States she has toured [facility] and would like pt to transfer there. CM then followed up with pt. States he is agreeable to placement at IRU. CM obtained consent and faxed referral. CM notified Shavon with [facility]. States she will review for possible transfer tomorrow. CM to f/u.
[2019-10-02] MEDS: FUROSEMIDE 20 MG TABLET PO SCH (17:32)
[2019-10-02 19:00] VITALS: BP 115/75
[2019-10-02] MEDS: FINASTERIDE 5 MG TABLET PO SCH (21:48)
[2019-10-02] MEDS: ATORVASTATIN CALCIUM 20 MG TABLET PO SCH (21:48)
[2019-10-02 23:00] VITALS: BP 123/76
[2019-10-03 03:00] VITALS: BP 103/73
[2019-10-03 05:18] LABS: HEMATOCRIT 28.2 % (42-54); MEAN CORPUSCULAR HEMOGLOBIN 29.3 pg (27.0-33.0); MEAN CORPUSCULAR HGB CONC 32.6 g/dL (32.0-36.0); MEAN CORPUSCULAR VOLUME 89.8 fL (79-99); NUCLEATED RED BLOOD CELLS 0.2 % (0.0-0.19); PLATELET COUNT (AUTO) 264 K/uL (130-400); RED BLOOD CELL COUNT(AUTO) 3.14 MIL/uL (4.50-6.20); RED CELL DISTRIBUTION WIDTH 14.6 % (11.0-15.5)
[2019-10-03 05:34] LABS: CREATININE 0.8 mg/dL (0.5-1.5); PHOSPHORUS 2.3 mg/dL (2.5-4.9); POTASSIUM 3.7 mmol/L (3.5-5.1)
[2019-10-03] MEDS: INSULIN HUMULIN R 100 UNIT/ML 3ML SQ SCH ×4 (07:30→20:52)
[2019-10-03 07:52] VITALS: BP 119/61
[2019-10-03] MEDS: FAMOTIDINE 20MG TAB 20 MG TAB PO SCH ×2 (08:24→20:43)
[2019-10-03] MEDS: METOPROLOL TARTRATE 25 MG TAB PO SCH ×2 (08:24→20:42)
[2019-10-03] MEDS: ASPIRIN 81 MG EC TAB PO SCH (08:25)
[2019-10-03] MEDS: ENALAPRIL MALEATE 5 MG TAB PO SCH ×2 (08:25→20:43)
[2019-10-03] MEDS: FUROSEMIDE 20 MG TABLET PO SCH (08:25)
[2019-10-03] MEDS: ENOXAPARIN SODIUM 30 MG/0.3 ML SQ SCH (08:26)
[2019-10-03 12:04] VITALS: BP 105/63
[2019-10-03] MEDS: ALLOPURINOL 100 MG TABLET PO SCH (13:05)
--- NOTE | 2019-10-03 14:56 | NUR ---
CM note met with patient and he requested i speak to daughter, he called her on phone, and this cm spoke to oliver, daughter, states she does not want pt to go to [facility] [place]. wants him to go to snf,at [facility], explained snf vs ip rehab level of care, states it does not matter wishes him to go to snf at [facility], and call made to do at [facility] states no beds available for today, but will have beds tomorrow. updated primary nurse Horacio, and states dr javier aware that pt wants snf instead. and in agreemetn as long as gets rehab. referral faxed to [facility] and informed of need for evaluattion today, states will evaluate and let cm know when accepted.
[2019-10-03 16:00] VITALS: BP 158/69
[2019-10-03 19:59] VITALS: BP 110/55
[2019-10-03] MEDS: ATORVASTATIN CALCIUM 20 MG TABLET PO SCH (20:42)
[2019-10-03] MEDS: FINASTERIDE 5 MG TABLET PO SCH (20:43)
[2019-10-03 23:55] VITALS: BP 120/55
[2019-10-04 03:28] VITALS: BP 131/74
[2019-10-04 04:54] LABS: HEMATOCRIT 28.2 % (42-54); MEAN CORPUSCULAR HEMOGLOBIN 29.2 pg (27.0-33.0); MEAN CORPUSCULAR HGB CONC 32.3 g/dL (32.0-36.0); MEAN CORPUSCULAR VOLUME 90.4 fL (79-99); PLATELET COUNT (AUTO) 258 K/uL (130-400); RED BLOOD CELL COUNT(AUTO) 3.12 MIL/uL (4.50-6.20); RED CELL DISTRIBUTION WIDTH 15.1 % (11.0-15.5); WHITE BLOOD COUNT (AUTO) 9.5 K/uL (4.8-10.8)
[2019-10-04 04:56] LABS: CREATININE 0.9 mg/dL (0.5-1.5); POTASSIUM 3.6 mmol/L (3.5-5.1)
[2019-10-04] MEDS: INSULIN HUMULIN R 100 UNIT/ML 3ML SQ SCH ×3 (06:10→16:11)
[2019-10-04 06:42] LABS: EOSINOPHILS % (MANUAL) 3 % (1-6); LYMPHOCYTES % (MANUAL) 16 % (22-44); MAN.DIFF COMMENT-IMPRESSION MANUAL DIFFERENTIAL; MONOCYTES % (MANUAL) 2 % (2-9); PLATELET MORPHOLOGY COMMENT ADEQUATE; SEGMENTED NEUTROPHILS % 79 % (40-70)
[2019-10-04] MEDS: ASPIRIN 81 MG EC TAB PO SCH (07:26)
[2019-10-04] MEDS: ENALAPRIL MALEATE 5 MG TAB PO SCH (07:26)
[2019-10-04] MEDS: FAMOTIDINE 20MG TAB 20 MG TAB PO SCH (07:26)
[2019-10-04] MEDS: METOPROLOL TARTRATE 25 MG TAB PO SCH (07:26)
[2019-10-04] MEDS: ENOXAPARIN SODIUM 30 MG/0.3 ML SQ SCH (07:27)
[2019-10-04 07:36] VITALS: BP 126/63
--- NOTE | 2019-10-04 08:00 | NUR ---
ASSESSMENT AAOX3 DENIES CP DENIES SOB DENIES NV NO COMPLAINTS, SITTING UP IN BED, AM MEDS GIVEN. BREATHING PATTERN IS EVEN AND UNLABORED. ENCOURAGED COUGH AND DEEP BREATHING WITH HEART PILLOW SPLINTING AND USE OF IS 10XS Q1HR WHILE AWAKE. CALL LIGHT WITHIN REACH.
[2019-10-04 12:04] VITALS: BP 113/60
[2019-10-04] MEDS: ALLOPURINOL 100 MG TABLET PO SCH (12:31)
--- NOTE | 2019-10-04 14:07 | NUR ---
DC PLAN [facility] CALLED AT 1315 SAID PATIENT ACCEPTED. LET KNOW. DC PLAN FOR TODAY. Addendum: 10/04/19 at 1408 by GILBERTO WILLETT RN CM Amended: Links added.
[2019-10-04 15:50] VITALS: BP 124/65
--- NOTE | 2019-10-04 17:00 | NUR ---
ASSISTED UP TO RESTROOM BM ACHIEVED. ASSISTED BACK TO CARDIAC CHAIR, NO COMPLAINTS.
--- NOTE | 2019-10-04 18:00 | NUR ---
STATUS PT IS AAOX3 SITTING UPRIGHT IN CARDIAC RECLINER, TOLERATED DINNER. NO COMPLAINTS.
--- NOTE | 2019-10-04 19:00 | NUR ---
DISCHARGE TO [facility] REPORT GIVEN TO NURSING STAFF AT [facility], DAUGHTER MADE AWARE OF PT ACCEPTANCE. CALI STATES SHE WILL COME TAKE FATHER TO [facility]. ONCOMING HOSPITAL CHIEF EXECUTIVE OFFICER AWARE OF DC PLAN TO [facility].
--- NOTE | 2019-10-04 20:00 | NUR ---
PT DISCHARGED AT THIS TIME TO [facility]. PICKED UP BY DAUGHTER .TELE AND IV REMOVED. PT ESCORTED WITH WHEELCHAIR. REPORT GIVEN TO [facility] STAFF.
== END 2019-10-04 20:22 | DRG 233 ==
LOC: EDH 16:15 → EDHIP 17:07 → 2CH 20:29 → UNDODISIN 09-25 15:08 → 2BH 09-25 18:44 → 2CV 09-27 16:56 → 2CH 09-28 05:49 → 2DH 09-30 15:57
PROVIDERS: ADMIT Internal Medicine; ATTEND Internal Medicine
PROC: 5A09357 Assistance with Respiratory Ventilation, Less than 24 Consecutive Hours, Continuous Positive Airway Pressure (ICD-10-PCS; 2019-09-24)
PROC: 5A09357 Assistance with Respiratory Ventilation, Less than 24 Consecutive Hours, Continuous Positive Airway Pressure (ICD-10-PCS; 2019-09-25)
PROC: 5A09357 Assistance with Respiratory Ventilation, Less than 24 Consecutive Hours, Continuous Positive Airway Pressure (ICD-10-PCS; 2019-09-26)
PROC: B2111ZZ Fluoroscopy of Multiple Coronary Arteries using Low Osmolar Contrast (ICD-10-PCS; 2019-09-27)
PROC: B2151ZZ Fluoroscopy of Left Heart using Low Osmolar Contrast (ICD-10-PCS; 2019-09-27)
PROC: 06BQ4ZZ Excision of Left Saphenous Vein, Percutaneous Endoscopic Approach (ICD-10-PCS; 2019-09-27)
PROC: 02100Z9 Bypass Coronary Artery, One Artery from Left Internal Mammary, Open Approach (ICD-10-PCS; principal; 2019-09-27 15:10)
PROC: 4A023N7 Measurement of Cardiac Sampling and Pressure, Left Heart, Percutaneous Approach (ICD-10-PCS; 2019-09-27 15:10)
PROC: 021109W Bypass Coronary Artery, Two Arteries from Aorta with Autologous Venous Tissue, Open Approach (ICD-10-PCS; 2019-09-27 15:10)
DX: I21.4 Non-ST elevation (NSTEMI) myocardial infarction (principal); J96.01 Acute respiratory failure with hypoxia; I50.31 Acute diastolic (congestive) heart failure; J81.1 Chronic pulmonary edema; I48.92 Unspecified atrial flutter; J98.11 Atelectasis; I11.0 Hypertensive heart disease with heart failure; I07.1 Rheumatic tricuspid insufficiency; M10.9 Gout, unspecified; D72.829 Elevated white blood cell count, unspecified; E11.51 Type 2 diabetes mellitus with diabetic peripheral angiopathy without gangrene; E66.9 Obesity, unspecified; E78.00 Pure hypercholesterolemia, unspecified; E78.5 Hyperlipidemia, unspecified; I65.29 Occlusion and stenosis of unspecified carotid artery; I25.110 Atherosclerotic heart disease of native coronary artery with unstable angina pectoris; Z68.28 Body mass index [BMI] 28.0-28.9, adult; I25.2 Old myocardial infarction; Z72.0 Tobacco use; Z79.82 Long term (current) use of aspirin; Z79.899 Other long term (current) drug therapy; Z91.19 Patient's noncompliance with other medical treatment and regimen
CPT/HCPCS: 36415; 36600; 71045; 71275; 80048; 80053; 80061; 80305; 81003; 82330; 82435; 82550; 82803; 82947; 82948; 83036; 83605; 83735; 83874; 83880; 84100; 84132; 84145; 84295; 84484; 85018; 85025; 85027; 85378; 85610; 85730; 86850; 86900; 86901; 86922; 87040; 87088; 87804; 93005; 93306; 93458; 93880; 94002; 94010; 94150; 94640; 94660; 97039; 99156; 99157; 99291; A4357; A7048; C1894; G0378; J0171; J0583; J0610; J0690; J0696; J1265; J1644; J1650; J1815; J1940; J2001; J2250; J2270; J2440; J2704; J2720; J3010; J3475; J3480; J3490; J7030; J7040; J7060; J7070; Q9967

== ENCOUNTER 2019-10-05 11:48 | Inpatient (IN) | payer MEDICARE ==
[2019-10-05] VITALS (44 sets, daily range): BP systolic 61–140; BP diastolic 39–94
[~2019-10-05] VITALS: Ht 185.4 cm; Wt 88.7 kg
[~2019-10-05 11:48] MED LIST changes: +ACET1TAB12 PO; +ALLO100T PO; +AMLO10TA7 PO; +ETOMIDATE 2 MG/ML 10 ML VIAL IVP ONE; +FINA5TAB41 PO; +FURO40TA5 PO; +GABA-529 PO; -HEPARIN SODIUM 1000UNIT/ML 10ML VIAL IV ONE; +LOSA1TAB54 PO; +MELO-108 PO; +POTA10CA44 PO; +PRAV40TA3 PO; +ROCURONIUM BROMIDE 10MG/1ML 5ML VL IV ONE
[2019-10-05 11:59] LABS: ABG BASE EXCESS -7.7 mmol/L (-2.0-3.0); ABG HCO3 15.2 mmol/L (21.0-28.0); ABG PCO2 26 mmHg (35-48)
[2019-10-05 12:21] LABS: BASOPHILS % (AUTO) 0.3 % (0.0-5.0); EOSINOPHILS % (AUTO) 0.6 % (0.0-8.0); HEMATOCRIT 32.4 % (42-54); LYMPHOCYTES % (AUTO) 7.2 % (21.0-51.0); MEAN CORPUSCULAR HEMOGLOBIN 29.1 pg (27.0-33.0); MEAN CORPUSCULAR HGB CONC 32.1 g/dL (32.0-36.0); MEAN CORPUSCULAR VOLUME 90.5 fL (79-99); MONOCYTES % (AUTO) 4.6 % (3.0-13.0); PLATELET COUNT (AUTO) 111 K/uL (130-400); RED BLOOD CELL COUNT(AUTO) 3.58 MIL/uL (4.50-6.20); RED CELL DISTRIBUTION WIDTH 15.3 % (11.0-15.5); WHITE BLOOD COUNT (AUTO) 14.5 K/uL (4.8-10.8)
[2019-10-05 12:22] LABS: POTASSIUM 3.4 mmol/L (3.5-5.1)
[2019-10-05 12:27] LABS: INR 1.31 (0.85-1.15); PARTIAL THROMBOPLASTIN TIME 36.9 SEC (26.3-35.5); PROTHROMBIN TIME 13.6 SEC (9.6-11.6)
[2019-10-05 12:38] LABS: ALBUMIN 3.1 g/dL (3.5-5.0); BILIRUBIN,TOTAL 1.6 mg/dL (0.2-1.0); TOTAL PROTEIN, SERUM 7.3 g/dL (6.0-8.3)
[2019-10-05] MEDS ORDERED: VANCOMYCIN 1GM+NS 250ML 250 ML IV ONE (12:43)
[2019-10-05] MEDS ORDERED: ZOSYN 3.375GM+NS 50ML 50 ML IV ONE (12:43)
[2019-10-05] MEDS ORDERED: NITROGLYCERIN 50 MG/D5% WATER 1 BOT ONE (12:56)
[2019-10-05 13:04] LABS: B-TYPE NATRIURETIC PEPTIDE 1280 pg/mL (0-100)
[2019-10-05 13:26] LABS: APPEARANCE,URINE TURBID (CLEAR); BILIRUBIN,URINE SMALL (NEGATIVE); COLOR,URINE YELLOW (YELLOW); GLUCOSE, URINE (UA) 100 mg/dL (NEGATIVE); KETONES,URINE 5 mg/dL (NEGATIVE); LEUKOCYTE ESTERASE ,URINE NEGATIVE (NEGATIVE); NITRATE,URINE NEGATIVE (NEGATIVE); OCCULT BLOOD,URINE LARGE (NEGATIVE); PROTEIN,URINE >=300 mg/dL (NEGATIVE)
[2019-10-05] MEDS ORDERED: ACETAMINOPHEN 325 MG TAB PO PRN (13:30)
[2019-10-05] MEDS ORDERED: VANCOMYCIN PROTOCOL PER PHARMACY IV SCH (13:30)
[2019-10-05] MEDS ORDERED: NITROGLYCERIN 50 MG/D5% WATER 250 BOT IV SCH (13:30)
[2019-10-05] MEDS ORDERED: LACTULOSE 20 GM/30 ML UDCUP PO PRN (13:30)
[2019-10-05] MEDS ORDERED: ONDANSETRON HCL 4 MG/2 ML VIAL IV PRN (13:30)
[2019-10-05] MEDS ORDERED: FUROSEMIDE 10 MG/ML 2ML VIAL IV SCH (13:45)
[2019-10-05 13:53] LABS: AMORPHOUS SEDIMENT,UR Many /LPF (None Seen); BACTERIA,URINE Moderate /HPF (None Seen); SQUAMOUS EPITHELIAL CELL,UR Few /HPF (0-2); WBC,URINE 26-50 /HPF (0-1)
[2019-10-05] MEDS ORDERED: POTASSIUM CHLORIDE 10MEQ/100ML 100 ML IV PRN (14:00)
--- NOTE | 2019-10-05 14:45 | NUR ---
PT RECEIVED FROM ED PATIENT RECEIVED S/P CARDIAC ARREST. PATIENT IS UNRESPONSIVE, NOT FOLLOWING COMMANDS, OPENS EYES WITH BLANK GAZE, EYES REPEATEDLY OPEN/CLOSE TWITCHING, AND FLAILING ARMS OCCASIONALLY. PATIENT IS ON 100% NRB MASK WITH A NASAL TRUMPET. PATIENT IS ALSO BEING COOLED WITH COOLING BLANKET PER HYPOTHERMIA PROTOCOL, NOT INTUBATED AND NO SEDATION. NITROGLYCERIN DRIP @ 20 MCG, NS @ 125 ML/HR. WILL CALL CONSULTS ORDERED
--- NOTE | 2019-10-05 14:55 | NUR ---
DR VASQUES CALLED DIRECTLY SPOKE TO DR VASQUES DIRECTLY TO NOTIFY OF PATIENT'S ADMISSION, HISTORY/RECENT CABG, AND CURRENT SITUATION. I INFORMED HIM THAT PATIENT'S CURRENT NEURO STATUS PREVENTED HIM FROM PROTECTING HIS AIRWAY. DR VASQUES STATED HE WAS ON THE WAY TO INTUBATED PATIENT. RESPIRATORY THERAPIST NOTIFIED.
[2019-10-05] MEDS ORDERED: PROPOFOL 1000 MG/100 ML 100 ML IV ONE (15:21)
--- NOTE | 2019-10-05 15:30 | NUR ---
DR VASQUES AT BEDSIDE TO INTUBATE PATIENT CONSENT OBTAINED; SIGNED BY DAUGHTER CALI STEWART. PATIENT PREPARED FOR INTUBATION. GLIDESCOPE USED. PATIENT INTUBATED WITHOUT DIFFICULTY/COMPLICATION. SEDATION ORDERED. WILL CONTINUE TO MONITOR CLOSELY
[2019-10-05] MEDS ORDERED: DEXMEDETOMIDINE HCL 400 MCG in SODIUM CHLORIDE 0.9% 96 ML IV PRN (15:45)
[2019-10-05] MEDS ORDERED: HEPARIN 25000 UNITS/250 ML D5W 250 ML IV SCH (15:45)
[2019-10-05] MEDS ORDERED: GLUCAGON 1MG KIT 1 MG ML IM PRN (15:45)
[2019-10-05] MEDS ORDERED: PROPOFOL 1000 MG/100 ML 100 ML IV PRN (15:45)
[2019-10-05] MEDS ORDERED: DEXTROSE 50%-WATER 50 ML DISP.SYRIN IV PRN (15:45)
[2019-10-05] MEDS ORDERED: HEPARIN SODIUM 5000UNIT/ML 1ML VIAL SQ PRN (15:45)
[2019-10-05] MEDS ORDERED: HEPARIN 25000 UNITS/250 ML D5W 250 ML IV ONE (16:20)
[2019-10-05] MEDS ORDERED: INSULIN HUMULIN R 100 UNIT/ML 3ML SQ SCH (16:30)
[2019-10-05] MEDS ORDERED: COMPOUND IV REFRIGERATED 1 EACH IVSOLN MISC PRN (16:45)
[2019-10-05] MEDS ORDERED: FENTANYL 1000MCG+NS 100ML 100 ML IV PRN (16:45)
[2019-10-05 17:06] LABS: ABG BASE EXCESS -8.2 mmol/L (-2.0-3.0); ABG HCO3 15.9 mmol/L (21.0-28.0); ABG OXYGEN SATURATION 98.6 % (95.0-99.0); ABG PCO2 30 mmHg (35-48)
[2019-10-05 17:15] LABS: MEAN CORPUSCULAR HEMOGLOBIN 29.6 pg (27.0-33.0); MEAN CORPUSCULAR HGB CONC 32.3 g/dL (32.0-36.0); MEAN CORPUSCULAR VOLUME 91.7 fL (79-99); PLATELET COUNT (AUTO) 85 K/uL (130-400); RED BLOOD CELL COUNT(AUTO) 3.38 MIL/uL (4.50-6.20); RED CELL DISTRIBUTION WIDTH 15.4 % (11.0-15.5); WHITE BLOOD COUNT (AUTO) 18.4 K/uL (4.8-10.8)
--- NOTE | 2019-10-05 17:15 | NUR ---
PT TAKEN FOR STAT CT ANGIO
[2019-10-05] MEDS ORDERED: IOHEXOL-350 75 ML VIAL IV ONE (17:22)
--- NOTE | 2019-10-05 17:50 | NUR ---
PT RETURNED FROM STAT CT ANGIO
[2019-10-05 17:59] LABS: ALBUMIN 2.7 g/dL (3.5-5.0); BILIRUBIN,TOTAL 1.7 mg/dL (0.2-1.0); CREATININE 0.9 mg/dL (0.5-1.5); POTASSIUM 3.7 mmol/L (3.5-5.1); TOTAL PROTEIN, SERUM 6.2 g/dL (6.0-8.3)
--- NOTE | 2019-10-05 18:00 | NUR ---
DR VASQUES AT BEDSIDE DR VASQUES IS ASSESSING FOR PLEURAL EFFUSIONS BILATERALLY. ALSO SPEAKING TO FAMILY ABOUT CURRENT SITUATION AND PLANS TO PERFORM A BRONCHOSCOPY IN AM, AND PLACE CENTRAL LINE
[2019-10-05 18:22] LABS: EOSINOPHILS % (MANUAL) 2 % (1-6); LYMPHOCYTES % (MANUAL) 5 % (22-44); MONOCYTES % (MANUAL) 6 % (2-9); SEGMENTED NEUTROPHILS % 87 % (40-70)
[2019-10-05 18:25] LABS: MAN.DIFF COMMENT-IMPRESSION MANUAL DIFFERENTIAL
[2019-10-05] MEDS: IPRATROPIUM/ALBUTEROL SULFATE 3 ML SOLUTION IH SCH ×2 (18:31→23:14)
[2019-10-05] MEDS: ZOSYN 3.375GM+NS 50ML 50 ML IV SCH ×2 (18:43→21:12)
[2019-10-05] MEDS ORDERED: NOREPINEPHRINE 4MG/NS 250ML 250 ML IV PRN (19:00)
[2019-10-05] MEDS ORDERED: POTASSIUM PHOS 15 mMOL+NS250ML 250 ML IV PRN (19:00)
[2019-10-05] MEDS ORDERED: LIDOCAINE HCL-MPF 1% 2ML VIAL IV PRN (19:00)
[2019-10-05] MEDS ORDERED: SODIUM CHLORIDE 0.9% 1000ML 1,000 ML IV ONE (20:06)
[2019-10-05] MEDS: FAMOTIDINE/PF 20 MG/2 ML VIAL IV SCH (20:12)
[2019-10-05] MEDS: VANCOMYCIN 1.5 GM in SODIUM CHLORIDE 0.9% 250 ML IV SCH (21:11)
[2019-10-05 21:36] LABS: INR 1.29 (0.85-1.15); PARTIAL THROMBOPLASTIN TIME 46.7 SEC (26.3-35.5); PROTHROMBIN TIME 13.4 SEC (9.6-11.6)
[2019-10-06] VITALS (80 sets, daily range): BP systolic 85–151; BP diastolic 38–95
[2019-10-06 05:30] LABS: BASOPHILS % (AUTO) 0.5 % (0.0-5.0); EOSINOPHILS % (AUTO) 0.5 % (0.0-8.0); HEMATOCRIT 27.3 % (42-54); LYMPHOCYTES % (AUTO) 7.1 % (21.0-51.0); MEAN CORPUSCULAR HEMOGLOBIN 28.9 pg (27.0-33.0); MEAN CORPUSCULAR HGB CONC 32.2 g/dL (32.0-36.0); MEAN CORPUSCULAR VOLUME 89.8 fL (79-99); MONOCYTES % (AUTO) 7.8 % (3.0-13.0); NEUTROPHILS % (AUTO) 82.2 % (40.0-77.0); PLATELET COUNT (AUTO) 74 K/uL (130-400); RED BLOOD CELL COUNT(AUTO) 3.04 MIL/uL (4.50-6.20); RED CELL DISTRIBUTION WIDTH 15.5 % (11.0-15.5); WHITE BLOOD COUNT (AUTO) 10.3 K/uL (4.8-10.8)
[2019-10-06 05:43] LABS: B-TYPE NATRIURETIC PEPTIDE 1280 pg/mL (0-100)
[2019-10-06 05:57] LABS: ALBUMIN 2.3 g/dL (3.5-5.0); BILIRUBIN,TOTAL 1.1 mg/dL (0.2-1.0); MAGNESIUM 1.9 mg/dL (1.80-2.40); POTASSIUM 3.3 mmol/L (3.5-5.1); TOTAL PROTEIN, SERUM 5.5 g/dL (6.0-8.3)
[2019-10-06] MEDS: INSULIN HUMULIN R 100 UNIT/ML 3ML SQ SCH ×4 (06:00→18:00)
[2019-10-06] MEDS ORDERED: SODIUM CHLORIDE 0.9% 1000ML 1,000 ML IV ONE (06:07)
[2019-10-06] MEDS: IPRATROPIUM/ALBUTEROL SULFATE 3 ML SOLUTION IH SCH ×4 (06:49→23:15)
[2019-10-06] MEDS: ZOSYN 3.375GM+NS 50ML 50 ML IV SCH ×3 (07:00→20:24)
[2019-10-06 08:27] LABS: ABG BASE EXCESS -8.7 mmol/L (-2.0-3.0); ABG HCO3 15.2 mmol/L (21.0-28.0); ABG PCO2 28 mmHg (35-48)
[2019-10-06] MEDS ORDERED: MIDAZOLAM HCL 1 MG/ML 2ML VIAL ONE (09:28)
[2019-10-06] MEDS ORDERED: ASPIRIN 300 MG SUPPOSITORY PR SCH (09:30)
--- NOTE | 2019-10-06 09:30 | NUR ---
Dr. Ambrose at bedside for bronchoscopy as long with RT and RN. Timeout completed and procedure went well with no complications.
[2019-10-06] MEDS ORDERED: MIDAZOLAM HCL 1 MG/ML 2ML VIAL IVP SCH (09:40)
[2019-10-06] MEDS: FAMOTIDINE/PF 20 MG/2 ML VIAL IV SCH ×2 (09:58→20:24)
[2019-10-06] MEDS: FUROSEMIDE 10 MG/ML 4ML VIAL IV SCH (09:58)
[2019-10-06 09:59] LABS: INR 1.27 (0.85-1.15); PROTHROMBIN TIME 13.2 SEC (9.6-11.6)
[2019-10-06] MEDS: VANCOMYCIN 1.5 GM in SODIUM CHLORIDE 0.9% 250 ML IV SCH ×2 (10:06→20:24)
[2019-10-06 10:09] LABS: PARTIAL THROMBOPLASTIN TIME > 120.0 SEC (26.3-35.5)
[2019-10-06 12:16] LABS: ABG BASE EXCESS -6.1 mmol/L (-2.0-3.0); ABG HCO3 16.5 mmol/L (21.0-28.0); ABG OXYGEN SATURATION 96.3 % (95.0-99.0); ABG PCO2 26 mmHg (35-48)
--- NOTE | 2019-10-06 12:45 | NUR ---
Physician communication Dr. Ambrose in constant communication post bronchoscopy in plans to extubated patient. He was notified about changed in CPAP and ABGS that were completed after being on cpap. patient extubated around 1300, placed on bipap after being extubated
--- NOTE | 2019-10-06 16:00 | NUR ---
INITIAL SW spoke with patient's daughter, Gracie Gregorio, . Patient was transferred from [facility] where he had just been for one day. MICHELLE/Choice completed and placed in chart. Patient has no local PCP. As per daughter, every 3 months, patient goes to [place] to see his PCP there. DCP is back to [facility] for short term treatment. ELAINA contacted Olivia Singh, Construction Cost Estimator for [facility]. She stated that patient was able to return once stable. Addendum: 10/06/19 at 1603 by CHRIS SNOW SS Amended: Links added.
--- NOTE | 2019-10-06 16:06 | NUR ---
1545 bedside nursing dysphagia test was completed with ice chips and water. Patient did not show any signs of aspiration with the ice or water. Speech therapy order inserted for swallow eval to follow up.
[2019-10-07] VITALS (23 sets, daily range): BP systolic 93–135; BP diastolic 40–66
[2019-10-07 03:43] LABS: BASOPHILS % (AUTO) 0.5 % (0.0-5.0); EOSINOPHILS % (AUTO) 0.7 % (0.0-8.0); HEMATOCRIT 27.3 % (42-54); LYMPHOCYTES % (AUTO) 9.5 % (21.0-51.0); MEAN CORPUSCULAR HEMOGLOBIN 29.2 pg (27.0-33.0); MEAN CORPUSCULAR HGB CONC 31.9 g/dL (32.0-36.0); MEAN CORPUSCULAR VOLUME 91.6 fL (79-99); NEUTROPHILS % (AUTO) 80.9 % (40.0-77.0); PLATELET COUNT (AUTO) 52 K/uL (130-400); RED BLOOD CELL COUNT(AUTO) 2.98 MIL/uL (4.50-6.20); RED CELL DISTRIBUTION WIDTH 15.9 % (11.0-15.5); WHITE BLOOD COUNT (AUTO) 9.8 K/uL (4.8-10.8)
[2019-10-07 04:21] LABS: ALBUMIN 2.5 g/dL (3.5-5.0); MAGNESIUM 1.7 mg/dL (1.80-2.40); TOTAL PROTEIN, SERUM 5.7 g/dL (6.0-8.3)
[2019-10-07 04:25] LABS: TROPONIN I 8.72 ng/mL (0.00-0.06)
[2019-10-07 04:39] LABS: ABG BASE EXCESS -5.6 mmol/L (-2.0-3.0); ABG HCO3 16.8 mmol/L (21.0-28.0); ABG OXYGEN SATURATION 95.1 % (95.0-99.0); ABG PCO2 26 mmHg (35-48)
[2019-10-07] MEDS: LIDOCAINE HCL-MPF 1% 2ML VIAL IV PRN ×2 (04:43→06:21)
[2019-10-07] MEDS: ZOSYN 3.375GM+NS 50ML 50 ML IV SCH ×3 (04:43→20:32)
[2019-10-07] MEDS: POTASSIUM CHLORIDE 20MEQ/100ML 100 ML IV PRN ×3 (04:43→16:18)
[2019-10-07] MEDS: INSULIN HUMULIN R 100 UNIT/ML 3ML SQ SCH ×5 (06:00→20:21)
[2019-10-07] MEDS: IPRATROPIUM/ALBUTEROL SULFATE 3 ML SOLUTION IH SCH ×3 (07:06→18:50)
[2019-10-07] MEDS: FUROSEMIDE 10 MG/ML 4ML VIAL IV SCH (09:08)
[2019-10-07] MEDS: FAMOTIDINE/PF 20 MG/2 ML VIAL IV SCH ×2 (09:08→20:30)
[2019-10-07] MEDS: ASPIRIN 325MG EC TAB 325 MG TABLET.DR PO SCH (09:08)
[2019-10-07] MEDS: MAGNESIUM 2GM PREMIX 50ML 50 ML IV PRN (09:14)
--- NOTE | 2019-10-07 09:57 | NUR ---
DYSPHAGIA EVAL COMPLETED. -S/S OF ASPIRATION. RECOMMEND MECHANICAL SOFT/CHOPPED, THIN LIQUIDS; PILLS WHOLE WITH LIQUIDS. Addendum: 10/07/19 at 0958 by ABHINAV MOY, [facility] ST Amended: Links added.
[2019-10-07] MEDS: VANCOMYCIN 1.5 GM in SODIUM CHLORIDE 0.9% 250 ML IV SCH ×2 (10:42→20:31)
[2019-10-07 14:05] LABS: HEMATOCRIT 28.7 % (42-54); MEAN CORPUSCULAR HEMOGLOBIN 29.2 pg (27.0-33.0); MEAN CORPUSCULAR HGB CONC 32.4 g/dL (32.0-36.0); PLATELET COUNT (AUTO) 44 K/uL (130-400); RED BLOOD CELL COUNT(AUTO) 3.19 MIL/uL (4.50-6.20); RED CELL DISTRIBUTION WIDTH 15.8 % (11.0-15.5); WHITE BLOOD COUNT (AUTO) 9.9 K/uL (4.8-10.8)
[2019-10-07 14:14] LABS: CREATININE 1.1 mg/dL (0.5-1.5); POTASSIUM 3.1 mmol/L (3.5-5.1)
[2019-10-07 14:16] LABS: INR 1.22 (0.85-1.15); PARTIAL THROMBOPLASTIN TIME 41.3 SEC (26.3-35.5); PROTHROMBIN TIME 12.7 SEC (9.6-11.6)
--- NOTE | 2019-10-07 16:23 | NUR ---
1553 gave patient's daughter BPCI Letter. I explained Jahaira, BPCI Coordinator would be making contact with the patient within 90 days.
[2019-10-08] VITALS (26 sets, daily range): BP systolic 96–150; BP diastolic 42–90
--- NOTE | 2019-10-08 02:23 | NUR ---
Patient confused and climbing out of bed. Bipp placed on patient at 0000, patient continues to refuse mask. Placed on 2LNC.
[2019-10-08 04:53] LABS: BASOPHILS % (AUTO) 0.7 % (0.0-5.0); EOSINOPHILS % (AUTO) 1.4 % (0.0-8.0); HEMATOCRIT 25.9 % (42-54); LYMPHOCYTES % (AUTO) 10.8 % (21.0-51.0); MEAN CORPUSCULAR HEMOGLOBIN 29.1 pg (27.0-33.0); MEAN CORPUSCULAR HGB CONC 32.4 g/dL (32.0-36.0); MEAN CORPUSCULAR VOLUME 89.6 fL (79-99); MONOCYTES % (AUTO) 6.4 % (3.0-13.0); NEUTROPHILS % (AUTO) 79.8 % (40.0-77.0); NUCLEATED RED BLOOD CELLS 0.2 % (0.0-0.19); PLATELET COUNT (AUTO) 31 K/uL (130-400); RED BLOOD CELL COUNT(AUTO) 2.89 MIL/uL (4.50-6.20); RED CELL DISTRIBUTION WIDTH 15.6 % (11.0-15.5); WHITE BLOOD COUNT (AUTO) 8.8 K/uL (4.8-10.8)
[2019-10-08 05:10] LABS: CREATININE 0.9 mg/dL (0.5-1.5); POTASSIUM 3.4 mmol/L (3.5-5.1)
[2019-10-08 05:33] LABS: INR 1.23 (0.85-1.15); PARTIAL THROMBOPLASTIN TIME 48.8 SEC (26.3-35.5); PROTHROMBIN TIME 12.8 SEC (9.6-11.6)
[2019-10-08] MEDS: ZOSYN 3.375GM+NS 50ML 50 ML IV SCH (05:33)
[2019-10-08] MEDS: POTASSIUM CHLORIDE 10% ELIXIR 20 MEQ/15 ML UDCUP PO PRN (05:49)
[2019-10-08] MEDS: INSULIN HUMULIN R 100 UNIT/ML 3ML SQ SCH ×4 (05:58→20:26)
[2019-10-08] MEDS: IPRATROPIUM/ALBUTEROL SULFATE 3 ML SOLUTION IH SCH ×4 (07:00→23:42)
[2019-10-08] MEDS: FUROSEMIDE 10 MG/ML 4ML VIAL IV SCH (08:02)
[2019-10-08] MEDS: FAMOTIDINE/PF 20 MG/2 ML VIAL IV SCH ×2 (08:03→20:21)
[2019-10-08] MEDS: VANCOMYCIN 1.5 GM in SODIUM CHLORIDE 0.9% 250 ML IV SCH (08:04)
[2019-10-08 09:07] LABS: HEMATOCRIT 24.9 % (42-54); MEAN CORPUSCULAR HEMOGLOBIN 29.3 pg (27.0-33.0); MEAN CORPUSCULAR HGB CONC 32.5 g/dL (32.0-36.0); MEAN CORPUSCULAR VOLUME 90.2 fL (79-99); NUCLEATED RED BLOOD CELLS 0.2 % (0.0-0.19); PLATELET COUNT (AUTO) 73 K/uL (130-400); RED BLOOD CELL COUNT(AUTO) 2.76 MIL/uL (4.50-6.20); RED CELL DISTRIBUTION WIDTH 15.8 % (11.0-15.5); WHITE BLOOD COUNT (AUTO) 8.4 K/uL (4.8-10.8)
--- NOTE | 2019-10-08 10:18 | NUR ---
PER SO, CONTROL PANEL OPERATOR CRUDE UNIT, CONSULT FOR DR HERRERA CALLED IN ALREADY, SO SPOKE TO LACIE AT DR HERRERA'S OFFICE.
--- NOTE | 2019-10-08 10:40 | NUR ---
ASSISTED DR VASQUES AT BEDSIDE, TO PERFORM LEFT THORACENTESIS. NOTED TOTAL OF 1850 ML OF LIGHT REDDISH COLORED DRAINAGE REMOVED PER MD. TOLERATED PROCEDURE WELL, UNLABORED RESPIRATIONS NOTED.
[2019-10-08] MEDS: POTASSIUM CHLORIDE 20 MEQ ERTAB PO PRN ×2 (12:02→14:39)
[2019-10-08] MEDS: ASPIRIN 325MG EC TAB 325 MG TABLET.DR PO SCH (12:02)
--- NOTE | 2019-10-08 12:38 | NUR ---
CASE CONFERENCE COMPLETED. PATIENT RECENTLY EVALUATED AND RECOMMENDED MECHANICAL SOFT/CHOPPED, THIN LIQUID, PILLS WHOLE WITH LIQUIDS. QUARANTINE OFFICER COORDINATED WITH NURSE BOURGEOIS TO FOLLOW UP. PATIENT IS CURRENTLY NPO PENDING THORACENTESIS PROCEDURE. NURSE BOURGEOIS REPORTED NO CONCERNS WITH PATIENT'S RECOMMENDED MODIFIED DIET PRIOR TO BEING NPO. Addendum: 10/08/[address] KALA MUÑOZ Amended: Links added.
[2019-10-08 14:03] LABS: SPECIMENTYPE,BODY FLUID PLEURAL
[2019-10-08 14:04] LABS: APPEARANCE BODY FLUID BLOODY (CLEAR); COLOR,BODY FLUID RED (LT YELLOW); TOTAL VOLUME,BODY FLUID 1850 mL
[2019-10-08 14:06] LABS: BODY FLUID WBC 613 /cu. mm.
[2019-10-08 14:07] LABS: BODY FLUID RBC 73500 /cu. mm.
[2019-10-08 14:12] LABS: BF LYMPHOCYTE 42 %; BF MESOTHELIAL 2 %; BF MONOCYTE 4 %
[2019-10-08] MEDS ORDERED: COMPOUND IV MISC 1 EACH IVSOLN MISC PRN (17:00)
[2019-10-08] MEDS: IRON SUCROSE COMPLEX 100 MG in SODIUM CHLORIDE 0.9% 50 ML IV SCH (17:43)
[2019-10-08 17:48] LABS: % IRON SATURATION 11.4 % (30-44)
--- NOTE | 2019-10-08 18:30 | NUR ---
DR SEYMOUR AT BEDSIDE, UPDATED MD ABOUT PATIENT BEING CONFUSED AND NOTED TO TRYING TO PULL ON LEON CATH, NEW ORDERS GIVEN TO D/C LEON CATH. LEON CATH DISCONTINUED, CATHETER INTACT.
--- NOTE | 2019-10-08 20:10 | NUR ---
ASSESSMENT RESTING IN BED. DENIES PAIN. USES IS WITH GOOD TECHNIQUE. REMINDED TO USE PILLOW TO SPLINT CHEST WITH DBC. ALSO REMINDED NOT TO USE ARMS TO PUSH OR PULL SELF WITH TO PREVENT STERNAL INJURY.
[2019-10-09] VITALS (24 sets, daily range): BP systolic 96–138; BP diastolic 45–82
[2019-10-09 03:53] LABS: MEAN CORPUSCULAR HEMOGLOBIN 29.5 pg (27.0-33.0); MEAN CORPUSCULAR HGB CONC 32.8 g/dL (32.0-36.0); MEAN CORPUSCULAR VOLUME 89.9 fL (79-99); NUCLEATED RED BLOOD CELLS 0.3 % (0.0-0.19); PLATELET COUNT (AUTO) 51 K/uL (130-400); RED BLOOD CELL COUNT(AUTO) 2.78 MIL/uL (4.50-6.20); RED CELL DISTRIBUTION WIDTH 15.9 % (11.0-15.5); WHITE BLOOD COUNT (AUTO) 7.4 K/uL (4.8-10.8)
[2019-10-09 04:07] LABS: CREATININE 0.8 mg/dL (0.5-1.5); MAGNESIUM 1.9 mg/dL (1.80-2.40); PHOSPHORUS 1.9 mg/dL (2.5-4.9); POTASSIUM 3.2 mmol/L (3.5-5.1)
[2019-10-09 04:15] LABS: B-TYPE NATRIURETIC PEPTIDE 1220 pg/mL (0-100)
[2019-10-09] MEDS: POTASSIUM CHLORIDE 20MEQ/100ML 100 ML IV PRN ×2 (04:25→08:58)
[2019-10-09] MEDS: MAGNESIUM 2GM PREMIX 50ML 50 ML IV PRN (04:26)
[2019-10-09] MEDS: INSULIN HUMULIN R 100 UNIT/ML 3ML SQ SCH ×4 (05:40→21:00)
[2019-10-09] MEDS: LIDOCAINE HCL-MPF 1% 2ML VIAL IV PRN (06:03)
[2019-10-09] MEDS: IPRATROPIUM/ALBUTEROL SULFATE 3 ML SOLUTION IH SCH ×4 (06:31→23:51)
[2019-10-09] MEDS: FAMOTIDINE/PF 20 MG/2 ML VIAL IV SCH ×2 (08:22→21:01)
[2019-10-09] MEDS: CEFTRIAXONE SODIUM 2 GM VIAL IVP SCH (08:23)
[2019-10-09] MEDS: FUROSEMIDE 10 MG/ML 4ML VIAL IV SCH ×3 (08:23→15:37)
[2019-10-09] MEDS: IRON SUCROSE COMPLEX 100 MG in SODIUM CHLORIDE 0.9% 50 ML IV SCH (08:23)
[2019-10-09] MEDS: ASPIRIN 325MG EC TAB 325 MG TABLET.DR PO SCH (08:23)
--- NOTE | 2019-10-09 08:45 | NUR ---
DR ARMENDARIZ, AUDIO VISUAL ARTS DIRECTOR, AT BEDSIDE, NEW ORDERS GIVEN, STATES THAT THERE IS NO NEED FOR CARDIAC STRESS TEST
[2019-10-09] MEDS: CARVEDILOL 3.125 MG TABLET PO SCH ×2 (10:00→21:00)
[2019-10-09] MEDS: LISINOPRIL 2.5 MG TABLET PO SCH ×2 (11:25→21:01)
[2019-10-09 13:14] LABS: MAGNESIUM 2.1 mg/dL (1.80-2.40); POTASSIUM 3.8 mmol/L (3.5-5.1)
[2019-10-09] MEDS: POTASSIUM CHLORIDE 20 MEQ ERTAB PO PRN ×2 (13:52→15:38)
[2019-10-10] VITALS (10 sets, daily range): BP systolic 89–110; BP diastolic 39–73
[2019-10-10 04:22] LABS: BASOPHILS % (AUTO) 0.8 % (0.0-5.0); EOSINOPHILS % (AUTO) 2.9 % (0.0-8.0); HEMATOCRIT 26.8 % (42-54); LYMPHOCYTES % (AUTO) 9.9 % (21.0-51.0); MEAN CORPUSCULAR HEMOGLOBIN 29.1 pg (27.0-33.0); MEAN CORPUSCULAR HGB CONC 32.8 g/dL (32.0-36.0); MEAN CORPUSCULAR VOLUME 88.7 fL (79-99); MONOCYTES % (AUTO) 7.2 % (3.0-13.0); NEUTROPHILS % (AUTO) 77.8 % (40.0-77.0); NUCLEATED RED BLOOD CELLS 0.7 % (0.0-0.19); PLATELET COUNT (AUTO) 44 K/uL (130-400); RED BLOOD CELL COUNT(AUTO) 3.02 MIL/uL (4.50-6.20); RED CELL DISTRIBUTION WIDTH 15.7 % (11.0-15.5); WHITE BLOOD COUNT (AUTO) 8.6 K/uL (4.8-10.8)
[2019-10-10 04:35] LABS: ALBUMIN 2.4 g/dL (3.5-5.0); BILIRUBIN,TOTAL 1.2 mg/dL (0.2-1.0); CREATININE 0.9 mg/dL (0.5-1.5); MAGNESIUM 1.8 mg/dL (1.80-2.40); POTASSIUM 3.6 mmol/L (3.5-5.1); TOTAL PROTEIN, SERUM 5.7 g/dL (6.0-8.3)
[2019-10-10] MEDS: POTASSIUM CHLORIDE 10% ELIXIR 20 MEQ/15 ML UDCUP PO PRN (05:39)
[2019-10-10] MEDS: MAGNESIUM 2GM PREMIX 50ML 50 ML IV PRN (05:40)
[2019-10-10] MEDS: INSULIN HUMULIN R 100 UNIT/ML 3ML SQ SCH ×4 (05:40→21:00)
[2019-10-10] MEDS: IPRATROPIUM/ALBUTEROL SULFATE 3 ML SOLUTION IH SCH ×4 (06:16→23:09)
[2019-10-10] MEDS: FUROSEMIDE 10 MG/ML 4ML VIAL IV SCH ×2 (07:26→16:30)
[2019-10-10] MEDS: ASPIRIN 325MG EC TAB 325 MG TABLET.DR PO SCH (08:31)
[2019-10-10] MEDS: LISINOPRIL 2.5 MG TABLET PO SCH ×2 (08:31→21:26)
--- NOTE | 2019-10-10 08:32 | NUR ---
HELD DOSE OF PRINIVIL, CURRENT B/P 105/44, HR 70
[2019-10-10] MEDS: IRON SUCROSE COMPLEX 100 MG in SODIUM CHLORIDE 0.9% 50 ML IV SCH (08:37)
[2019-10-10] MEDS: FAMOTIDINE/PF 20 MG/2 ML VIAL IV SCH ×2 (08:37→21:25)
[2019-10-10] MEDS: CARVEDILOL 3.125 MG TABLET PO SCH ×2 (08:38→21:26)
[2019-10-10] MEDS: CEFTRIAXONE SODIUM 2 GM VIAL IVP SCH (08:38)
[2019-10-10] MEDS: POTASSIUM CHLORIDE 20 MEQ ERTAB PO PRN (13:09)
--- NOTE | 2019-10-10 13:10 | NUR ---
TRANSFERRED FROM ICU PATIENT IS AAOX2. NO SIGNS DISTRESS NOTED. PATIENT IS LYING IN BED, NO DISCOMFORTS NOTED.
--- NOTE | 2019-10-10 13:15 | NUR ---
TRANSFERRED TO ROOM 205 VIA BED, ASSISTED PER CHARGE NURSE ALISON ARRIAGA=
--- NOTE | 2019-10-10 13:50 | NUR ---
[facility]
[2019-10-11] VITALS (8 sets, daily range): BP systolic 98–122; BP diastolic 50–60
[2019-10-11 04:56] LABS: BASOPHILS % (AUTO) 0.9 % (0.0-5.0); EOSINOPHILS % (AUTO) 2.6 % (0.0-8.0); HEMATOCRIT 26.5 % (42-54); LYMPHOCYTES % (AUTO) 11.4 % (21.0-51.0); MEAN CORPUSCULAR HEMOGLOBIN 29.3 pg (27.0-33.0); MEAN CORPUSCULAR HGB CONC 32.5 g/dL (32.0-36.0); MEAN CORPUSCULAR VOLUME 90.1 fL (79-99); MONOCYTES % (AUTO) 7.5 % (3.0-13.0); NEUTROPHILS % (AUTO) 76.4 % (40.0-77.0); NUCLEATED RED BLOOD CELLS 0.6 % (0.0-0.19); PLATELET COUNT (AUTO) 42 K/uL (130-400); RED BLOOD CELL COUNT(AUTO) 2.94 MIL/uL (4.50-6.20); WHITE BLOOD COUNT (AUTO) 9.5 K/uL (4.8-10.8)
[2019-10-11 05:14] LABS: ALBUMIN 2.5 g/dL (3.5-5.0); BILIRUBIN,TOTAL 1.1 mg/dL (0.2-1.0); CREATININE 0.9 mg/dL (0.5-1.5); MAGNESIUM 2.2 mg/dL (1.80-2.40); POTASSIUM 3.6 mmol/L (3.5-5.1); TOTAL PROTEIN, SERUM 5.8 g/dL (6.0-8.3)
[2019-10-11] MEDS: IPRATROPIUM/ALBUTEROL SULFATE 3 ML SOLUTION IH SCH ×4 (06:37→23:54)
[2019-10-11] MEDS: INSULIN HUMULIN R 100 UNIT/ML 3ML SQ SCH ×4 (07:30→21:00)
[2019-10-11] MEDS: FUROSEMIDE 10 MG/ML 4ML VIAL IV SCH (07:41)
--- NOTE | 2019-10-11 07:50 | NUR ---
ASSESSMENT ENCOUNTERED PT AMBULATING FROM BATHROOM, A&OX3 BUT FORGETFUL, CALM COOPERATIVE AND DOES NOT APPEAR TO BE IN ANY DISTRESS NOR ANY NEURO DEFICITS PRESENT. PT DENIES PAIN, SOB, NAUSEA. STERNAL AND CHEST TUBE INCISION SITES DRY AND INTACT, PT DOES HAVE DIFFICULTY TO STAND AND REQUIRES 1-2 PERSON ASSIST TO STAND BUT ONCE STANDING, GAIT IS SLOW BUT STRONG WITH ASSIST. PT IS ABLE TO TOLERATE FOODS, FLUIDS AND MEDICATION WITH NO THROAT CLEARING OR COUGH, CALL LIGHT WITHIN REACH, BED ALARM ACTIVATED.
[2019-10-11] MEDS: FAMOTIDINE/PF 20 MG/2 ML VIAL IV SCH ×2 (09:00→20:50)
[2019-10-11] MEDS: LISINOPRIL 2.5 MG TABLET PO SCH ×2 (09:09→21:50)
[2019-10-11] MEDS: CARVEDILOL 3.125 MG TABLET PO SCH ×2 (09:10→21:50)
[2019-10-11] MEDS: FUROSEMIDE 40 MG TABLET PO SCH ×2 (09:10→17:00)
[2019-10-11] MEDS: ASPIRIN 325MG EC TAB 325 MG TABLET.DR PO SCH (09:10)
[2019-10-11] MEDS ORDERED: LISI2.5T2 PO (09:28)
[2019-10-11] MEDS ORDERED: FURO40TA7 PO (09:28)
[2019-10-11] MEDS ORDERED: CARV3.1262 PO (09:28)
[2019-10-11] MEDS ORDERED: ASPI-891 PO (09:28)
[2019-10-11] MEDS ORDERED: LEVO500T2 PO (09:28)
--- NOTE | 2019-10-11 11:12 | NUR ---
DC PLAN SPOKE TO DR. SEYMOUR PATIENT WAS GOING TO BE READY FOR DC TODAY. CALLED [facility] SAID SHE HAD NOT RECEIVED PACKET. SENT PACKET SPOKE TO REP SAID THEY WOULD COME SEE PATIENT. DR. Teja MARINO CALLED BACK WANTS A JACY FOR TOMORROW. Addendum: 10/11/19 at 1118 by GILBERTO WILLETT RN CM Amended: Links added.
[2019-10-11] MEDS: LEVOFLOXACIN 500 MG TABLET PO SCH (11:36)
--- NOTE | 2019-10-11 13:42 | NUR ---
RD NOTIFICATION RD CONSULTS DUE TO LOS X 6. PENDING STRESS TEST TODAY PER FAMILY. PO INTAKE IS POOR (25%) DUE TO DIFFICULTIES CHEWING. PT HAS NO TEETH AND DOES NOT HAVE HIS DENTURES AT THE MOMENT. HIS APPETITE IS GOOD. LABS REVIEWED (NA 129, BNP 1280, TROPONIN 8.72). MEDS REVIEWED. SKIN IS INTACT. NO COMPLAINTS OF N/V/C/D AT THIS TIME. RD RECOMMENDS TO ADD FLUID RESTRICTION TO DIET ORDER (1500-1800ML/D) OFFER ENSURE WITH ALL MEALS DUE TO POOR PO INTAKE Addendum: 10/11/19 at [address] Amended: Links added.
[2019-10-12 03:22] VITALS: BP 104/59
[2019-10-12 04:10] LABS: BASOPHILS % (AUTO) 0.8 % (0.0-5.0); HEMATOCRIT 27.3 % (42-54); LYMPHOCYTES % (AUTO) 12.9 % (21.0-51.0); MEAN CORPUSCULAR HEMOGLOBIN 29.1 pg (27.0-33.0); MEAN CORPUSCULAR HGB CONC 32.2 g/dL (32.0-36.0); MEAN CORPUSCULAR VOLUME 90.4 fL (79-99); MONOCYTES % (AUTO) 7.2 % (3.0-13.0); NEUTROPHILS % (AUTO) 75.8 % (40.0-77.0); NUCLEATED RED BLOOD CELLS 0.2 % (0.0-0.19); PLATELET COUNT (AUTO) 36 K/uL (130-400); RED BLOOD CELL COUNT(AUTO) 3.02 MIL/uL (4.50-6.20); RED CELL DISTRIBUTION WIDTH 16.7 % (11.0-15.5); WHITE BLOOD COUNT (AUTO) 9.2 K/uL (4.8-10.8)
[2019-10-12 04:40] LABS: ALBUMIN 2.5 g/dL (3.5-5.0); BILIRUBIN,TOTAL 1.1 mg/dL (0.2-1.0); POTASSIUM 3.6 mmol/L (3.5-5.1); TOTAL PROTEIN, SERUM 5.8 g/dL (6.0-8.3)
[2019-10-12] MEDS: INSULIN HUMULIN R 100 UNIT/ML 3ML SQ SCH ×4 (05:42→20:46)
[2019-10-12] MEDS: IPRATROPIUM/ALBUTEROL SULFATE 3 ML SOLUTION IH SCH ×3 (06:43→18:26)
--- NOTE | 2019-10-12 07:35 | NUR ---
ASSESSMENT ENCOUNTERED PT ASLEEP BUT AROUSEABLE, A&OX3 BUT FORGETFUL, CALM COOPERATIVE AND DOES NOT APPEAR TO BE IN ANY DISTRESS NOR ANY NEURO DEFICITS PRESENT. PT DENIES PAIN, SOB, NAUSEA. STERNAL AND CHEST TUBE INCISION SITES DRY AND INTACT, PT DOES HAVE DIFFICULTY TO STAND AND REQUIRES 1-2 PERSON ASSIST TO STAND BUT ONCE STANDING, GAIT IS SLOW BUT STRONG WITH ASSIST. PT IS ABLE TO TOLERATE FOODS, FLUIDS AND MEDICATION WITH NO THROAT CLEARING OR COUGH. PT IS NPO PENDING LEXISCAN. CALL LIGHT WITHIN REACH.
[2019-10-12 08:00] VITALS: BP 119/62
--- NOTE | 2019-10-12 08:00 | NUR ---
HOLD Pt NPO FOR PROCEDURE. NO FOOD OR LIQUIDS PROVIDED AT THIS TIME. Addendum: 10/12/19 at 1228 by ABHINAV MOY, [facility] ST Amended: Links added.
[2019-10-12] MEDS ORDERED: EPOETIN ALFA 10,000 UNIT/ML VIAL SQ SCH (09:15)
[2019-10-12] MEDS ORDERED: REGADENOSON 0.4 MG/5 ML PF SYG IVP SCH (10:30)
[2019-10-12 12:30] VITALS: BP_SYST 102; BP_SYST 120; BP_DIAS 65
[2019-10-12] MEDS: ASPIRIN 325MG EC TAB 325 MG TABLET.DR PO SCH (12:38)
[2019-10-12] MEDS: FAMOTIDINE/PF 20 MG/2 ML VIAL IV SCH ×2 (12:38→20:46)
[2019-10-12] MEDS: LISINOPRIL 2.5 MG TABLET PO SCH ×2 (12:38→20:45)
[2019-10-12] MEDS: CARVEDILOL 3.125 MG TABLET PO SCH ×2 (12:41→20:45)
[2019-10-12] MEDS: LEVOFLOXACIN 500 MG TABLET PO SCH (12:43)
[2019-10-12] MEDS: FUROSEMIDE 40 MG TABLET PO SCH ×2 (12:43→18:05)
[2019-10-12 15:00] VITALS: BP 110/61
[2019-10-12] MEDS ORDERED: SODIUM CHLORIDE 0.9% 250 ML IV ONE (17:35)
[2019-10-12 20:44] VITALS: BP 93/52
[2019-10-12] MEDS: FERROUS SULFATE 325 MG TABLET.DR PO SCH (20:46)
[2019-10-12 23:06] VITALS: BP 99/57
[2019-10-13] VITALS (7 sets, daily range): BP systolic 98–126; BP diastolic 48–69
--- NOTE | 2019-10-13 01:00 | NUR ---
PATIENT REFUSING TO WEAR TELEMETRY UNIT, STATES "IT IS KEEPING ME AWAKE,". REFUSAL OF TREATMENT PAPER SIGNED BY PATIENT.
[2019-10-13 04:18] LABS: BASOPHILS % (AUTO) 0.7 % (0.0-5.0); EOSINOPHILS % (AUTO) 1.8 % (0.0-8.0); HEMATOCRIT 28.8 % (42-54); LYMPHOCYTES % (AUTO) 12.6 % (21.0-51.0); MEAN CORPUSCULAR HEMOGLOBIN 28.9 pg (27.0-33.0); MEAN CORPUSCULAR HGB CONC 31.9 g/dL (32.0-36.0); MEAN CORPUSCULAR VOLUME 90.6 fL (79-99); MONOCYTES % (AUTO) 9.1 % (3.0-13.0); NEUTROPHILS % (AUTO) 74.8 % (40.0-77.0); PLATELET COUNT (AUTO) 59 K/uL (130-400); RED BLOOD CELL COUNT(AUTO) 3.18 MIL/uL (4.50-6.20); RED CELL DISTRIBUTION WIDTH 17.2 % (11.0-15.5); WHITE BLOOD COUNT (AUTO) 8.9 K/uL (4.8-10.8)
[2019-10-13 04:35] LABS: B-TYPE NATRIURETIC PEPTIDE 1330 pg/mL (0-100)
[2019-10-13 04:49] LABS: CARBON DIOXIDE 24 mmol/L (21-32); CHLORIDE 95 mmol/L (101-111); GLOMERULAR FILTR. RATE CALC 77 mL/min (>60); GLUCOSE,RANDOM 111 mg/dL (70-105); PHOSPHORUS 3.2 mg/dL (2.5-4.9); POTASSIUM 3.6 mmol/L (3.5-5.1); SODIUM SERUM 132 mmol/L (136-145); UREA NITROGEN, BLOOD 18 mg/dL (7-18)
[2019-10-13] MEDS: INSULIN HUMULIN R 100 UNIT/ML 3ML SQ SCH ×4 (06:11→20:43)
[2019-10-13] MEDS: IPRATROPIUM/ALBUTEROL SULFATE 3 ML SOLUTION IH SCH ×4 (06:30→23:51)
[2019-10-13] MEDS: CARVEDILOL 3.125 MG TABLET PO SCH ×2 (09:00→20:39)
[2019-10-13] MEDS: LISINOPRIL 2.5 MG TABLET PO SCH ×2 (09:00→22:44)
[2019-10-13] MEDS: ASPIRIN 325MG EC TAB 325 MG TABLET.DR PO SCH (09:09)
[2019-10-13] MEDS: FAMOTIDINE/PF 20 MG/2 ML VIAL IV SCH ×2 (09:09→20:32)
[2019-10-13] MEDS: ASCORBIC ACID 500 MG TAB PO SCH (09:09)
[2019-10-13] MEDS: LEVOFLOXACIN 500 MG TABLET PO SCH (09:10)
[2019-10-13] MEDS: FUROSEMIDE 40 MG TABLET PO SCH ×2 (09:11→17:55)
[2019-10-13] MEDS: FERROUS SULFATE 325 MG TABLET.DR PO SCH ×2 (09:11→20:33)
--- NOTE | 2019-10-13 12:08 | NUR ---
FOLLOW UP COMPLETED. Pt SEATED IN CHAIR AT THIS TIME. Pt TOLERATING MECHANICAL SOFT/CHOPPED, THIN LIQUID DIET WITH NO ISSUES. NO OVERT S/S OF ASPIRATION DURING THE EVALUATION. RECOMMEND CONTINUED CURRENT DIET. Addendum: 10/13/19 at 1210 by ABHINAV MOY, [facility] ST Amended: Links added.
--- NOTE | 2019-10-13 13:01 | NUR ---
DC PLAN CHECKED NO JACY SCAN REPORT. LET CHARGE NURSE KNOW SAID THAT THEY HAVE BEEN TRYING TO REACH DR. Teja MARINO FOR RECOMMENDATIONS AND FOR REPORT. NO CALL BACK YET. WILL LET DIRECTOR KNOW. Addendum: 10/13/19 at 1303 by GILBERTO WILLETT RN CM Amended: Links added.
[2019-10-14 04:34] VITALS: BP 113/54
[2019-10-14] MEDS: IPRATROPIUM/ALBUTEROL SULFATE 3 ML SOLUTION IH SCH ×3 (06:29→18:38)
[2019-10-14] MEDS: INSULIN HUMULIN R 100 UNIT/ML 3ML SQ SCH ×4 (06:50→21:00)
[2019-10-14 08:00] VITALS: BP 94/52
[2019-10-14] MEDS: LEVOFLOXACIN 500 MG TABLET PO SCH (09:27)
[2019-10-14] MEDS: FAMOTIDINE/PF 20 MG/2 ML VIAL IV SCH ×2 (09:27→21:00)
[2019-10-14] MEDS: ASPIRIN 325MG EC TAB 325 MG TABLET.DR PO SCH (09:27)
[2019-10-14] MEDS: CARVEDILOL 3.125 MG TABLET PO SCH ×2 (09:27→21:03)
[2019-10-14 10:22] LABS: HEMATOCRIT 30.4 % (42-54); MEAN CORPUSCULAR HEMOGLOBIN 28.9 pg (27.0-33.0); MEAN CORPUSCULAR HGB CONC 31.6 g/dL (32.0-36.0); MEAN CORPUSCULAR VOLUME 91.6 fL (79-99); PLATELET COUNT (AUTO) 48 K/uL (130-400); RED BLOOD CELL COUNT(AUTO) 3.32 MIL/uL (4.50-6.20); RED CELL DISTRIBUTION WIDTH 17.5 % (11.0-15.5); WHITE BLOOD COUNT (AUTO) 7.8 K/uL (4.8-10.8)
[2019-10-14 10:31] LABS: ALBUMIN 2.7 g/dL (3.5-5.0); BILIRUBIN,TOTAL 1.2 mg/dL (0.2-1.0); POTASSIUM 3.6 mmol/L (3.5-5.1); TOTAL PROTEIN, SERUM 6.3 g/dL (6.0-8.3)
[2019-10-14 11:39] LABS: EOSINOPHILS % (MANUAL) 4 % (1-6); LYMPHOCYTES % (MANUAL) 5 % (22-44); MONOCYTES % (MANUAL) 9 % (2-9); SEGMENTED NEUTROPHILS % 82 % (40-70)
[2019-10-14 11:40] LABS: MAN.DIFF COMMENT-IMPRESSION MANUAL DIFFERENTIAL
[2019-10-14 12:00] VITALS: BP 94/58
[2019-10-14] MEDS: FERROUS SULFATE 325 MG TABLET.DR PO SCH ×2 (15:06→21:02)
[2019-10-14] MEDS: ASCORBIC ACID 500 MG TAB PO SCH (15:06)
[2019-10-14] MEDS: LISINOPRIL 2.5 MG TABLET PO SCH (15:06)
[2019-10-14] MEDS: FUROSEMIDE 40 MG TABLET PO SCH (15:07)
[2019-10-14 16:00] VITALS: BP 97/59
[2019-10-14 20:04] VITALS: BP 109/57
[2019-10-14 23:25] VITALS: BP 117/60
[2019-10-15] VITALS (12 sets, daily range): BP systolic 92–141; BP diastolic 42–86
[2019-10-15] MEDS: LISINOPRIL 2.5 MG TABLET PO SCH ×3 (00:11→20:38)
[2019-10-15] MEDS: IPRATROPIUM/ALBUTEROL SULFATE 3 ML SOLUTION IH SCH ×5 (00:19→23:25)
[2019-10-15] MEDS: INSULIN HUMULIN R 100 UNIT/ML 3ML SQ SCH ×4 (05:44→20:39)
[2019-10-15 06:37] LABS: BASOPHILS % (AUTO) 0.6 % (0.0-5.0); EOSINOPHILS % (AUTO) 1.8 % (0.0-8.0); LYMPHOCYTES % (AUTO) 10.8 % (21.0-51.0); MEAN CORPUSCULAR HEMOGLOBIN 29.1 pg (27.0-33.0); MEAN CORPUSCULAR HGB CONC 31.3 g/dL (32.0-36.0); MEAN CORPUSCULAR VOLUME 93.1 fL (79-99); MONOCYTES % (AUTO) 5.9 % (3.0-13.0); NEUTROPHILS % (AUTO) 80.2 % (40.0-77.0); PLATELET COUNT (AUTO) 44 K/uL (130-400); RED BLOOD CELL COUNT(AUTO) 3.33 MIL/uL (4.50-6.20); RED CELL DISTRIBUTION WIDTH 17.4 % (11.0-15.5); WHITE BLOOD COUNT (AUTO) 8.5 K/uL (4.8-10.8)
[2019-10-15 07:03] LABS: PHOSPHORUS 3.4 mg/dL (2.5-4.9); POTASSIUM 3.7 mmol/L (3.5-5.1)
[2019-10-15 07:22] LABS: B-TYPE NATRIURETIC PEPTIDE 1200 pg/mL (0-100)
[2019-10-15] MEDS: FUROSEMIDE 40 MG TABLET PO SCH ×2 (09:00→17:00)
--- NOTE | 2019-10-15 09:00 | NUR ---
AM ASSESSMENT PT LAYING IN BED, HOB ELEVATED 30 DEGREES, WATCHING TV. A/O X 3. NO SOB. NO DISTRESS NOTED. DENIES CHEST PAIN OR DISCOMFORT. DENIES PALPITATIONS. NO TELE AURORA, PT REFUSING. DENIES N/V AND/OR DIARRHEA. NPO STATUS REINFORCED. PT TO HAVE LHC TODAY BY DR MICHELLE MACIEL. PT TO RECEIVE 2 UNITS OF PLTS PRIOR TO PROCEDURE. BR W/BRP. INSTRUCTED TO CALL FOR ASSISTANCE. CALL NATHAN W/IN RONNELL.
[2019-10-15] MEDS ORDERED: HEPARIN SODIUM 1000UNIT/ML 10ML VIAL ONE (09:35)
[2019-10-15] MEDS ORDERED: FENTANYL CITRATE PF 50 MCG/1 ML 2ML VIAL ONE (09:36)
[2019-10-15] MEDS ORDERED: LIDOCAINE HCL 2% 20ML ONE (09:36)
[2019-10-15] MEDS ORDERED: IOHEXOL-350 50ML VIAL IV ONE (09:36)
[2019-10-15] MEDS ORDERED: IOHEXOL 350 MG/ML 100ML INFUS..BTL IV ONE ×2 (09:36→11:48)
[2019-10-15] MEDS ORDERED: NITROGLYCERIN 2 MG/VIAL VIAL IV ONE (09:36)
[2019-10-15] MEDS ORDERED: MIDAZOLAM HCL 1 MG/ML 2ML VIAL ONE (09:36)
--- NOTE | 2019-10-15 10:15 | NUR ---
STATUS PT TAKEN TO DIRECTOR OF DISTRIBUTION FOR LHC VIA BED. TELE AURORA REMOVED. 2nd UNIT OF PLATELET CURRENTLY INFUSING.
[2019-10-15] MEDS ORDERED: BIVALIRUDIN 250 MG/VIAL IV ONE ×2 (10:19→11:48)
[2019-10-15] MEDS ORDERED: EPTIFIBATIDE 75MG/100ML BOTTLE 100 ML IV ONE (11:40)
[2019-10-15] MEDS ORDERED: EPTIFIBATIDE 2 MG/ML 10 ML VIAL IVP ONE (11:40)
[2019-10-15] MEDS ORDERED: CLOPIDOGREL BISULFATE 300 MG TAB ONE (12:13)
[2019-10-15] MEDS ORDERED: ASPIRIN 325MG EC TAB 325 MG TABLET.DR PO ONE (12:14)
[2019-10-15] MEDS ORDERED: CLOPIDOGREL BISULFATE 300 MG TAB PO SCH (12:45)
[2019-10-15] MEDS ORDERED: EPTIFIBATIDE 75MG/100ML BOTTLE 100 ML IV SCH (12:45)
--- NOTE | 2019-10-15 13:00 | NUR ---
STATUS PT RECEIVED FROM STILL PHOTOGRAPHER VIA BED, S/P [facility] BY DR MICHELLE MACIEL. RT GROIN DSTAT DRY & INTACT. NO BLEEDING, NO HEMATOMA NOTED. PUNCTURE SITE SOFT, NON-TENDER. (+) WEAK BILATERAL PEDAL PULSES. BLE PINK & WARM TO TOUCH. PT INFORMED TO MAINTAIN BEDREST X 6 HR. DENIES INCISIONAL PAIN @ THIS TIME. INTEGRILIN INFUSING @ 15 ML/HR X 24HR. IF BLEEDING OCCURS @ PUNCTURE SITE INTEGRILIN TO BE DC'D. 0.45% NACL INFUSING @ 50 ML/HR. INSTRUCTED TO CALL FOR ASSISTANCE. CALL NATHAN W/IN REACH.
[2019-10-15] MEDS ORDERED: VANCOMYCIN 1GM+NS 250ML 250 ML IV PRN (13:15)
--- NOTE | 2019-10-15 14:55 | NUR ---
RD FOLLOW UP Pt away for procedure at time of visit. Pt tolerating current diet order at this time with no report of GI distress. RD to follow up with Heart Healthy Nutrition education. RD to continue to monitor nutritional labs, PO status. Please notify RD as nutritional concerns arise. Thank you. Addendum: 10/15/19 at [address] Amended: Links added.
[2019-10-15] MEDS: FERROUS SULFATE 325 MG TABLET.DR PO SCH ×2 (15:03→20:39)
[2019-10-15] MEDS: ASCORBIC ACID 500 MG TAB PO SCH (15:03)
[2019-10-15] MEDS: LEVOFLOXACIN 500 MG TABLET PO SCH (15:04)
[2019-10-15] MEDS: 1/2 NORMAL SALINE 1,000 ML IV SCH (15:06)
[2019-10-15] MEDS: FUROSEMIDE 10 MG/ML 2ML VIAL IV SCH (15:06)
[2019-10-15] MEDS: CARVEDILOL 3.125 MG TABLET PO SCH ×2 (15:07→20:39)
[2019-10-15] MEDS: ACETAMINOPHEN 325 MG TAB PO PRN (15:33)
--- NOTE | 2019-10-15 19:00 | NUR ---
STATUS BEDREST COMPLETE. RT GROIN DSTAT DRY & INTACT. NO BLEEDING, NO HEMATOMA NOTED. PUNCTURE SITE SOFT, NON-TENDER. NO BLEEDING, NO HEMATOMA NOTED. (+) BILATERAL WEAK PEDAL PULSES. BLE PINK & WARM TO TOUCH. PT SAT UP IN BED. INSTRUCTED TO CALL FOR ASSISTANCE. CALL NATHAN W/IN REACH.
[2019-10-15] MEDS: FAMOTIDINE 20MG TAB 20 MG TAB PO SCH (20:38)
[2019-10-15] MEDS: ATORVASTATIN CALCIUM 40 MG TABLET PO SCH (20:39)
[2019-10-16] MEDS: FUROSEMIDE 10 MG/ML 2ML VIAL IV SCH (01:48)
[2019-10-16 03:52] VITALS: BP 104/51
[2019-10-16 05:16] LABS: BASOPHILS % (AUTO) 0.8 % (0.0-5.0); EOSINOPHILS % (AUTO) 2.1 % (0.0-8.0); HEMATOCRIT 27.8 % (42-54); LYMPHOCYTES % (AUTO) 9.6 % (21.0-51.0); MEAN CORPUSCULAR VOLUME 90.6 fL (79-99); MONOCYTES % (AUTO) 7.7 % (3.0-13.0); PLATELET COUNT (AUTO) 84 K/uL (130-400); RED BLOOD CELL COUNT(AUTO) 3.07 MIL/uL (4.50-6.20); RED CELL DISTRIBUTION WIDTH 16.9 % (11.0-15.5); WHITE BLOOD COUNT (AUTO) 7.1 K/uL (4.8-10.8)
[2019-10-16 05:28] LABS: B-TYPE NATRIURETIC PEPTIDE 1460 pg/mL (0-100)
[2019-10-16 05:38] LABS: CARBON DIOXIDE 26 mmol/L (21-32); CHLORIDE 95 mmol/L (101-111); CREATININE 0.9 mg/dL (0.5-1.5); GLOMERULAR FILTR. RATE CALC 87 mL/min (>60); GLUCOSE,RANDOM 107 mg/dL (70-105); PHOSPHORUS 3.1 mg/dL (2.5-4.9); POTASSIUM 3.5 mmol/L (3.5-5.1); SODIUM SERUM 130 mmol/L (136-145); UREA NITROGEN, BLOOD 13 mg/dL (7-18)
[2019-10-16 07:00] VITALS: BP 118/59
[2019-10-16] MEDS: IPRATROPIUM/ALBUTEROL SULFATE 3 ML SOLUTION IH SCH ×4 (07:12→23:43)
[2019-10-16] MEDS: INSULIN HUMULIN R 100 UNIT/ML 3ML SQ SCH ×4 (07:30→20:50)
--- NOTE | 2019-10-16 08:00 | NUR ---
AM ASSESSMENT PT LAYING IN BED, HOB ELEVATED 30 DEGREES, WATCHING TV. A/O X 3. NO SOB. NO DISTRESS NOTED. DENIES CHEST PAIN OR DISCOMFORT. DENIES PALPITATIONS. NO TELE MONITOR. DENIES N/V AND/OR DIARRHEA. RT GROIN DSTAT DRY & INTACT. NO BLEEDING, NO HEMATOMA NOTED. PUNCTURE SITE SOFT, NON-TENDER. BLE PINK & WARM TO TOUCH. INTEGRILIN GTT INFUSING @ 15 MG/HR. GTT TO BE DC'D @ 1000. PT TO MAINTAIN BEDREST UNTIL 1000. INSTRUCTED TO CALL FOR ASSISTANCE. CALL NATHAN W/IN REACH.
[2019-10-16] MEDS: FAMOTIDINE 20MG TAB 20 MG TAB PO SCH ×2 (08:30→20:32)
[2019-10-16] MEDS: ASPIRIN 81MG TAB.CHEW PO SCH (08:30)
[2019-10-16] MEDS: CARVEDILOL 3.125 MG TABLET PO SCH ×2 (08:30→20:32)
[2019-10-16] MEDS: CLOPIDOGREL BISULFATE 75 MG TAB PO SCH (08:30)
[2019-10-16] MEDS: FERROUS SULFATE 325 MG TABLET.DR PO SCH ×2 (08:30→20:32)
[2019-10-16] MEDS: LISINOPRIL 2.5 MG TABLET PO SCH ×2 (08:31→20:32)
[2019-10-16] MEDS: LEVOFLOXACIN 500 MG TABLET PO SCH (08:31)
[2019-10-16] MEDS: ASCORBIC ACID 500 MG TAB PO SCH (08:31)
[2019-10-16] MEDS: FUROSEMIDE 40 MG TABLET PO SCH ×2 (08:31→16:53)
[2019-10-16] MEDS: POTASSIUM CHLORIDE 20 MEQ ERTAB PO PRN (08:33)
[2019-10-16] MEDS: 1/2 NORMAL SALINE 1,000 ML IV SCH (08:45)
--- NOTE | 2019-10-16 10:00 | NUR ---
INTEGRILIN GTT INTEGRILIN GTT DC'D @ THIS TIME.
[2019-10-16 11:00] VITALS: BP 91/55
[2019-10-16 15:00] VITALS: BP 116/63
[2019-10-16 19:44] VITALS: BP 105/62
[2019-10-16] MEDS: ATORVASTATIN CALCIUM 40 MG TABLET PO SCH (20:32)
[2019-10-16 23:36] VITALS: BP 99/54
[2019-10-17 03:08] VITALS: BP 103/53
[2019-10-17 03:26] LABS: HEMATOCRIT 29.7 % (42-54); MEAN CORPUSCULAR VOLUME 90.5 fL (79-99); PLATELET COUNT (AUTO) 97 K/uL (130-400); RED BLOOD CELL COUNT(AUTO) 3.28 MIL/uL (4.50-6.20); WHITE BLOOD COUNT (AUTO) 6.9 K/uL (4.8-10.8)
[2019-10-17 03:39] LABS: CREATININE 1.1 mg/dL (0.5-1.5); MAGNESIUM 1.9 mg/dL (1.80-2.40); POTASSIUM 3.6 mmol/L (3.5-5.1)
[2019-10-17 03:43] LABS: EOSINOPHILS % (MANUAL) 2 % (1-6); LYMPHOCYTES % (MANUAL) 18 % (22-44); MAN.DIFF COMMENT-IMPRESSION MANUAL DIFFERENTIAL; MONOCYTES % (MANUAL) 2 % (2-9); PLATELET MORPHOLOGY COMMENT SLIGHTLY DECREASED; SEGMENTED NEUTROPHILS % 78 % (40-70)
[2019-10-17] MEDS: INSULIN HUMULIN R 100 UNIT/ML 3ML SQ SCH ×4 (05:46→20:59)
[2019-10-17] MEDS: IPRATROPIUM/ALBUTEROL SULFATE 3 ML SOLUTION IH SCH ×4 (06:42→23:09)
[2019-10-17 07:00] VITALS: BP 108/47
[2019-10-17] MEDS: FERROUS SULFATE 325 MG TABLET.DR PO SCH ×2 (08:51→21:14)
[2019-10-17] MEDS: FAMOTIDINE 20MG TAB 20 MG TAB PO SCH ×2 (08:51→21:14)
[2019-10-17] MEDS: CARVEDILOL 3.125 MG TABLET PO SCH ×2 (08:51→21:14)
[2019-10-17] MEDS: LISINOPRIL 2.5 MG TABLET PO SCH ×2 (08:51→21:15)
[2019-10-17] MEDS: LEVOFLOXACIN 500 MG TABLET PO SCH (08:52)
[2019-10-17] MEDS: FUROSEMIDE 40 MG TABLET PO SCH ×2 (08:52→17:29)
[2019-10-17] MEDS: CLOPIDOGREL BISULFATE 75 MG TAB PO SCH (08:52)
[2019-10-17] MEDS: ASCORBIC ACID 500 MG TAB PO SCH (08:52)
[2019-10-17] MEDS: ASPIRIN 81MG TAB.CHEW PO SCH (08:52)
[2019-10-17 11:00] VITALS: BP 102/55
[2019-10-17 15:00] VITALS: BP 104/57
[2019-10-17] MEDS: POTASSIUM CHLORIDE 20 MEQ ERTAB PO PRN ×2 (17:30→18:26)
[2019-10-17 19:38] VITALS: BP 124/64
[2019-10-17] MEDS: ATORVASTATIN CALCIUM 40 MG TABLET PO SCH (21:14)
[2019-10-17 23:31] VITALS: BP 103/55
[2019-10-18] VITALS (11 sets, daily range): BP systolic 79–118; BP diastolic 50–63
[2019-10-18 03:44] LABS: EOSINOPHILS % (AUTO) 2.5 % (0.0-8.0); LYMPHOCYTES % (AUTO) 13.1 % (21.0-51.0); MEAN CORPUSCULAR HEMOGLOBIN 28.7 pg (27.0-33.0); MEAN CORPUSCULAR HGB CONC 31.5 g/dL (32.0-36.0); MEAN CORPUSCULAR VOLUME 90.9 fL (79-99); MONOCYTES % (AUTO) 7.4 % (3.0-13.0); NEUTROPHILS % (AUTO) 75.6 % (40.0-77.0); PLATELET COUNT (AUTO) 98 K/uL (130-400); RED BLOOD CELL COUNT(AUTO) 3.63 MIL/uL (4.50-6.20); RED CELL DISTRIBUTION WIDTH 16.7 % (11.0-15.5); WHITE BLOOD COUNT (AUTO) 7.2 K/uL (4.8-10.8)
[2019-10-18 04:49] LABS: INR 1.11 (0.85-1.15); PARTIAL THROMBOPLASTIN TIME 37.8 SEC (26.3-35.5); PROTHROMBIN TIME 11.9 SEC (9.6-11.6)
[2019-10-18] MEDS: INSULIN HUMULIN R 100 UNIT/ML 3ML SQ SCH ×4 (06:02→21:00)
[2019-10-18] MEDS: IPRATROPIUM/ALBUTEROL SULFATE 3 ML SOLUTION IH SCH ×4 (07:14→23:40)
--- NOTE | 2019-10-18 07:15 | NUR ---
ASSESSMENT PT IS AAOX3 DENIES CP DENIES SOB DENIES NV NO COMPLAINTS, RESTING IN BED. NOTED BRUISING TO RIGHT GROIN AND RIGHT ABD AREA, DENIES PAIN TO SITE. NPO STATUS FOR AICD PLACEMENT TODAY. CALL LIGHT WITHIN REACH. DOWN VIA BED TO IGNITION EXPERT FOR AICD WITH IGNITION EXPERT STAFF
[2019-10-18] MEDS: CLOPIDOGREL BISULFATE 75 MG TAB PO SCH ×2 (07:16→14:29)
[2019-10-18] MEDS: ASPIRIN 81MG TAB.CHEW PO SCH ×2 (07:16→14:29)
[2019-10-18] MEDS: FUROSEMIDE 40 MG TABLET PO SCH ×2 (07:16→16:01)
[2019-10-18] MEDS: CARVEDILOL 3.125 MG TABLET PO SCH ×2 (07:16→21:45)
[2019-10-18] MEDS: LEVOFLOXACIN 500 MG TABLET PO SCH (07:16)
[2019-10-18] MEDS: FERROUS SULFATE 325 MG TABLET.DR PO SCH ×2 (07:16→21:45)
[2019-10-18] MEDS: FAMOTIDINE 20MG TAB 20 MG TAB PO SCH ×2 (07:16→21:45)
[2019-10-18] MEDS: LISINOPRIL 2.5 MG TABLET PO SCH ×2 (07:17→21:45)
[2019-10-18] MEDS: ASCORBIC ACID 500 MG TAB PO SCH (07:17)
[2019-10-18] MEDS ORDERED: MIDAZOLAM HCL 1 MG/ML 2ML VIAL ONE ×2 (07:20→08:14)
[2019-10-18] MEDS ORDERED: BUPIVACAINE/PF 0.25% 30ML VIAL IJ ONE (07:20)
[2019-10-18] MEDS ORDERED: MEPERIDINE-PF 25 MG/ML SYG ONE ×2 (07:21→08:14)
[2019-10-18] MEDS ORDERED: LIDOCAINE HCL 1% MDV 50ML VIAL ONE (07:21)
[2019-10-18] MEDS ORDERED: VANCOMYCIN 1GM+NS 250ML 500 ML IV ONE (07:21)
--- NOTE | 2019-10-18 09:50 | NUR ---
RETURNED FROM [facility] OUT HAND PT IS ASLEEP, BUT AROUSABLE TO VERBAL STIMULI. PLACED PATIENT ON TELE PACK. HR VIA TELE 1ST DEGREE BLOCK 71.
--- NOTE | 2019-10-18 10:21 | NUR ---
DC PLAN SENT UPDATES TO [facility] PENDING PACEMAKER 10/17. SENT NEW PASRR. Addendum: 10/18/19 at 1025 by GILBERTO WILLETT RN CM Amended: Links added.
--- NOTE | 2019-10-18 14:30 | NUR ---
ASPIRIN AND PLAVIX GIVEN AT THIS TIME DR Teja MACIEL ROUNDED, PATIENT HAD AICD PLACED THIS AM BY CHRISTIANA [facility] TO GIVE ASA AND PLAVIX NOW.
--- NOTE | 2019-10-18 15:30 | NUR ---
STATUS SITTING UP IN CHAIR, DENIES CHEST PAIN DENIES SOB DENIES NV. STATES HE FEELS A LITTLE DIZZY, SBP 79. ASSISTED BACK TO BED. TOLERATED WELL, LEGS RAISED. CONTINUING TO MONITOR.
--- NOTE | 2019-10-18 16:34 | NUR ---
RD FOLLOW UP Pt tolerating current diet order with no report of GI distress, Fair PO intake. Pt reports meats are dry. Pt did not have dentures in at lunch time but states food is manageable. Recommend mechanical soft diet modification, soups/gravies with meals for moisture. RD also provided Heart healthy nutrition education. Pt verbalized understanding. Addendum: 10/18/19 at [address] Amended: Links added.
--- NOTE | 2019-10-18 16:37 | NUR ---
NUTRITION EDUCATION MARITZA provided Heart healthy nutrition education. RD provided reference materials and handouts. Pt verbalized understanding. RD to continue to monitor. Addendum: 10/18/19 at [address] Amended: Links added.
[2019-10-18] MEDS ORDERED: SODIUM CHLORIDE 0.9% 500ML 500 ML IV ONE (17:11)
[2019-10-18] MEDS ORDERED: SODIUM CHLORIDE 0.9% 500ML 500 ML IV SCH (17:15)
--- NOTE | 2019-10-18 17:24 | NUR ---
DR SEYMOUR ROUNDED / MADE AWARE OF HYPOTENSION THIS AFTERNOON NS BOLUS ORDERED, ORDERS CARRIED OUT
[2019-10-18] MEDS: ATORVASTATIN CALCIUM 40 MG TABLET PO SCH (21:45)
[2019-10-19] VITALS: BP 103/53
--- NOTE | 2019-10-19 | NUR ---
PT IS BEING NON COMPLIANT TO SLING RESTRICTIONS. WANTS TO BE ABLE TO EXTEND AND SLEEP ON OPERATIVE SIDE.
[2019-10-19 04:14] VITALS: BP 106/53
[2019-10-19] MEDS: IPRATROPIUM/ALBUTEROL SULFATE 3 ML SOLUTION IH SCH ×4 (05:06→23:14)
[2019-10-19 05:28] LABS: HEMATOCRIT 29.2 % (42-54); MEAN CORPUSCULAR HEMOGLOBIN 29.4 pg (27.0-33.0); MEAN CORPUSCULAR HGB CONC 32.5 g/dL (32.0-36.0); MEAN CORPUSCULAR VOLUME 90.4 fL (79-99); PLATELET COUNT (AUTO) 85 K/uL (130-400); RED BLOOD CELL COUNT(AUTO) 3.23 MIL/uL (4.50-6.20); RED CELL DISTRIBUTION WIDTH 16.6 % (11.0-15.5); WHITE BLOOD COUNT (AUTO) 6.2 K/uL (4.8-10.8)
[2019-10-19] MEDS ORDERED: FUROSEMIDE 40 MG TABLET PO SCH (06:00)
[2019-10-19 06:05] LABS: B-TYPE NATRIURETIC PEPTIDE 836 pg/mL (0-100)
[2019-10-19 06:21] LABS: MAGNESIUM 2.1 mg/dL (1.80-2.40); POTASSIUM 3.6 mmol/L (3.5-5.1)
[2019-10-19] MEDS: INSULIN HUMULIN R 100 UNIT/ML 3ML SQ SCH ×4 (06:45→21:00)
[2019-10-19 07:48] VITALS: BP 107/55
--- NOTE | 2019-10-19 08:00 | NUR ---
ASSESSMENT PT IS AAOX3 DENIES CP DENIES SOB DENIES NV NO COMPLAINTS, SITTING UP IN BED. LEFT ARM SLING IN PLACE, LEFT UPPER CHEST DRESSING IN PLACE CLEAN DRY AND INTACT. NO VISIBLE SIGNS OF DISTRESS NOTED, PATIENT IS EATING BREAKFAST. CALL LIGHT WITHIN REACH.
[2019-10-19] MEDS ORDERED: SODIUM CHLORIDE 0.9% 1000ML 1,000 ML IV ONE (08:43)
[2019-10-19] MEDS: LISINOPRIL 2.5 MG TABLET PO SCH (08:45)
[2019-10-19] MEDS: ASCORBIC ACID 500 MG TAB PO SCH (08:45)
[2019-10-19] MEDS: ASPIRIN 81MG TAB.CHEW PO SCH (08:45)
[2019-10-19] MEDS: CARVEDILOL 3.125 MG TABLET PO SCH ×2 (08:45→21:56)
[2019-10-19] MEDS: LEVOFLOXACIN 500 MG TABLET PO SCH (08:45)
[2019-10-19] MEDS: FAMOTIDINE 20MG TAB 20 MG TAB PO SCH ×2 (08:46→20:03)
[2019-10-19] MEDS: CLOPIDOGREL BISULFATE 75 MG TAB PO SCH (08:46)
[2019-10-19] MEDS: FERROUS SULFATE 325 MG TABLET.DR PO SCH ×2 (08:46→20:02)
[2019-10-19 11:51] VITALS: BP 87/49
[2019-10-19 15:38] VITALS: BP 95/57
--- NOTE | 2019-10-19 16:00 | NUR ---
SITTING UP IN BED NO COMPLAINTS DENIES PAIN DENIES NV. CALL LIGHT WITHIN REACH.
[2019-10-19] MEDS: ATORVASTATIN CALCIUM 40 MG TABLET PO SCH (20:02)
[2019-10-19] MEDS: ACETAMINOPHEN 325 MG TAB PO PRN ×2 (20:14)
[2019-10-19 20:36] VITALS: BP 118/63
[2019-10-20] VITALS: BP 105/54
[2019-10-20 04:14] VITALS: BP 128/75
[2019-10-20 04:24] LABS: BASOPHILS % (AUTO) 1.3 % (0.0-5.0); EOSINOPHILS % (AUTO) 2.9 % (0.0-8.0); HEMATOCRIT 28.1 % (42-54); LYMPHOCYTES % (AUTO) 17.1 % (21.0-51.0); MEAN CORPUSCULAR HEMOGLOBIN 29.1 pg (27.0-33.0); MEAN CORPUSCULAR HGB CONC 32.4 g/dL (32.0-36.0); MEAN CORPUSCULAR VOLUME 89.8 fL (79-99); NEUTROPHILS % (AUTO) 70.2 % (40.0-77.0); PLATELET COUNT (AUTO) 83 K/uL (130-400); RED BLOOD CELL COUNT(AUTO) 3.13 MIL/uL (4.50-6.20); RED CELL DISTRIBUTION WIDTH 16.3 % (11.0-15.5); WHITE BLOOD COUNT (AUTO) 5.6 K/uL (4.8-10.8)
[2019-10-20 04:39] LABS: ALBUMIN 2.6 g/dL (3.5-5.0); CARBON DIOXIDE 23 mmol/L (21-32); CHLORIDE 96 mmol/L (101-111); CREATININE 1.3 mg/dL (0.5-1.5); GLOMERULAR FILTR. RATE CALC 57 mL/min (>60); GLUCOSE,RANDOM 106 mg/dL (70-105); PHOSPHORUS 2.5 mg/dL (2.5-4.9); POTASSIUM 3.3 mmol/L (3.5-5.1); SODIUM SERUM 130 mmol/L (136-145); UREA NITROGEN, BLOOD 13 mg/dL (7-18)
[2019-10-20 04:49] LABS: B-TYPE NATRIURETIC PEPTIDE 760 pg/mL (0-100)
[2019-10-20] MEDS: IPRATROPIUM/ALBUTEROL SULFATE 3 ML SOLUTION IH SCH (05:01)
[2019-10-20] MEDS: INSULIN HUMULIN R 100 UNIT/ML 3ML SQ SCH ×3 (05:59→16:26)
[2019-10-20] MEDS ORDERED: FUROSEMIDE 40 MG TABLET PO SCH (06:00)
[2019-10-20] MEDS: POTASSIUM CHLORIDE 20MEQ/100ML 100 ML IV PRN ×2 (06:13→08:56)
[2019-10-20] MEDS: LIDOCAINE HCL-MPF 1% 2ML VIAL IV PRN (06:13)
[2019-10-20 07:43] VITALS: BP 118/69
[2019-10-20] MEDS: FAMOTIDINE 20MG TAB 20 MG TAB PO SCH (08:48)
[2019-10-20] MEDS: FERROUS SULFATE 325 MG TABLET.DR PO SCH (08:48)
[2019-10-20] MEDS: CLOPIDOGREL BISULFATE 75 MG TAB PO SCH (08:48)
[2019-10-20] MEDS: ASCORBIC ACID 500 MG TAB PO SCH (08:48)
[2019-10-20] MEDS: LISINOPRIL 2.5 MG TABLET PO SCH ×2 (08:49→09:00)
[2019-10-20] MEDS: ASPIRIN 81MG TAB.CHEW PO SCH (08:50)
[2019-10-20] MEDS: CARVEDILOL 3.125 MG TABLET PO SCH (08:50)
--- NOTE | 2019-10-20 10:30 | NUR ---
RECEIVED REPORT FROM ALISON MCCARTHY AND TOOK OVER CARE OF PATIENT.
[2019-10-20] MEDS ORDERED: SODIUM CHLORIDE 0.9% 1000ML 1,000 ML IV ONE (10:57)
[2019-10-20] MEDS: POTASSIUM CHLORIDE 20 MEQ ERTAB PO PRN (11:08)
--- NOTE | 2019-10-20 11:15 | NUR ---
DC PLAN SPOKE TO DR. SEYMOUR FOR DC ORDER. GAVE MED REC. CALLED FOR CHART TO BE COPIED. Addendum: 10/20/19 at 1118 by GILBERTO WILLETT RN CM Amended: Links added.
[2019-10-20] MEDS ORDERED: FAMO20TA8 PO (11:16)
[2019-10-20] MEDS ORDERED: CLOP75TA14 PO (11:16)
[2019-10-20] MEDS ORDERED: ASCO500T20 PO (11:16)
[2019-10-20] MEDS ORDERED: LISI2.5T2 PO (11:16)
[2019-10-20] MEDS ORDERED: ASPI-1005 PO (11:16)
[2019-10-20] MEDS ORDERED: FERR324T4 PO (11:16)
[2019-10-20] MEDS ORDERED: ATOR40TA69 PO (11:16)
[2019-10-20 11:43] VITALS: BP 93/55
[2019-10-20] MEDS ORDERED: IPRATROPIUM/ALBUTEROL SULFATE 3 ML SOLUTION IH PRN (12:45)
[2019-10-20 15:27] VITALS: BP 95/62
--- NOTE | 2019-10-20 15:37 | NUR ---
REPORT CALLED TO CHASITY ARMENDARIZ RN AT [facility] [phone].
--- NOTE | 2019-10-20 16:41 | NUR ---
GIVEN DISMISSAL INSTRUCTIONS TO PATIENT, VERBALIZED UNDERSTANDING. REMOVED TELE PACK. REMOVED SALINE LOCK FROM RIGHT AND LEFT ARMS, IV SITE WITHOUT REDNESS NOTED. AWAITING FOR [facility] TRANSPORT VAN.
--- NOTE | 2019-10-20 17:17 | NUR ---
[facility] TRANSPORTER IN TO TAKE PT TO REHAB. PERSONAL BELONGINGS WITH PATIENT.
== END 2019-10-20 16:55 | DRG 222 ==
LOC: EDH 11:48 → EDHIP 11:49 → 2BH 14:51 → 2AH 10-10 13:22
PROVIDERS: ADMIT Internal Medicine; ATTEND Internal Medicine
PROC: 5A12012 Performance of Cardiac Output, Single, Manual (ICD-10-PCS; 2019-10-05)
PROC: 5A1935Z Respiratory Ventilation, Less than 24 Consecutive Hours (ICD-10-PCS; 2019-10-05)
PROC: 0BH17EZ Insertion of Endotracheal Airway into Trachea, Via Natural or Artificial Opening (ICD-10-PCS; 2019-10-05)
PROC: 0B9G8ZX Drainage of Left Upper Lung Lobe, Via Natural or Artificial Opening Endoscopic, Diagnostic (ICD-10-PCS; 2019-10-05)
PROC: 0W9B3ZZ Drainage of Left Pleural Cavity, Percutaneous Approach (ICD-10-PCS; 2019-10-08)
PROC: 30233R1 Transfusion of Nonautologous Platelets into Peripheral Vein, Percutaneous Approach (ICD-10-PCS; 2019-10-12)
PROC: 02703ZZ Dilation of Coronary Artery, One Artery, Percutaneous Approach (ICD-10-PCS; principal; 2019-10-13)
PROC: B2111ZZ Fluoroscopy of Multiple Coronary Arteries using Low Osmolar Contrast (ICD-10-PCS; 2019-10-13)
PROC: B2131ZZ Fluoroscopy of Multiple Coronary Artery Bypass Grafts using Low Osmolar Contrast (ICD-10-PCS; 2019-10-13)
PROC: B2181ZZ Fluoroscopy of Left Internal Mammary Bypass Graft using Low Osmolar Contrast (ICD-10-PCS; 2019-10-13)
PROC: 4A023N7 Measurement of Cardiac Sampling and Pressure, Left Heart, Percutaneous Approach (ICD-10-PCS; 2019-10-13)
PROC: 0JH608Z Insertion of Defibrillator Generator into Chest Subcutaneous Tissue and Fascia, Open Approach (ICD-10-PCS; 2019-10-18)
PROC: 02HK3KZ Insertion of Defibrillator Lead into Right Ventricle, Percutaneous Approach (ICD-10-PCS; 2019-10-18)
DX: I21.4 Non-ST elevation (NSTEMI) myocardial infarction (principal); I50.23 Acute on chronic systolic (congestive) heart failure; J96.01 Acute respiratory failure with hypoxia; J15.6 Pneumonia due to other Gram-negative bacteria; I46.9 Cardiac arrest, cause unspecified; I49.01 Ventricular fibrillation; J69.0 Pneumonitis due to inhalation of food and vomit; I13.0 Hypertensive heart and chronic kidney disease with heart failure and stage 1 through stage 4 chronic kidney disease, or unspecified chronic kidney disease; E44.1 Mild protein-calorie malnutrition; E87.2 Acidosis; N39.0 Urinary tract infection, site not specified; E87.1 Hypo-osmolality and hyponatremia; I25.810 Atherosclerosis of coronary artery bypass graft(s) without angina pectoris; Y95 Nosocomial condition; I11.0 Hypertensive heart disease with heart failure; E87.6 Hypokalemia; I25.10 Atherosclerotic heart disease of native coronary artery without angina pectoris; D64.9 Anemia, unspecified; D69.59 Other secondary thrombocytopenia; E11.22 Type 2 diabetes mellitus with diabetic chronic kidney disease; E66.9 Obesity, unspecified; Z68.25 Body mass index [BMI] 25.0-25.9, adult; E78.00 Pure hypercholesterolemia, unspecified; E78.5 Hyperlipidemia, unspecified; G62.9 Polyneuropathy, unspecified; I25.2 Old myocardial infarction; I25.5 Ischemic cardiomyopathy; I27.20 Pulmonary hypertension, unspecified; M19.90 Unspecified osteoarthritis, unspecified site; N18.9 Chronic kidney disease, unspecified; N40.0 Benign prostatic hyperplasia without lower urinary tract symptoms; Z79.02 Long term (current) use of antithrombotics/antiplatelets; Z79.82 Long term (current) use of aspirin; Z79.899 Other long term (current) drug therapy; Z80.42 Family history of malignant neoplasm of prostate; Z95.810 Presence of automatic (implantable) cardiac defibrillator; M10.9 Gout, unspecified
CPT/HCPCS: 31500; 33249; 36415; 36430; 36600; 70450; 71045; 71275; 76604; 76882; 78452; 80048; 80053; 80202; 81001; 82040; 82435; 82465; 82550; 82728; 82803; 82945; 82947; 82948; 83540; 83550; 83605; 83615; 83735; 83874; 83880; 83986; 84100; 84132; 84145; 84157; 84295; 84484; 85018; 85025; 85027; 85378; 85610; 85730; 86850; 86900; 86901; 87040; 87071; 87077; 87088; 87116; 87186; 87205; 87206; 88108; 88341; 88342; 89051; 92610; 92920; 93005; 93017; 93306; 93455; 93970; 94002; 94003; 94150; 94640; 94660; 94664; 96374; 97039; 99156; 99157; A9500; C1722; C1725; C1760; C1769; C1887; C1894; C1895; G0378; J0583; J0696; J0885; J1327; J1644; J1756; J1815; J1940; J2175; J2250; J2543; J2704; J2785; J3010; J3370; J3475; J3480; J3490; J7030; J7040; P9034; Q9967